=== PATIENT | female | born 1940 | race Caucasian/White ===

== ENCOUNTER 2017-08-11 10:56 | Observation (INO) ==
--- OUTSIDE RECORDS SUMMARY | 2017-08-11 12:04 | External Medical Summary | Referral Summary ---
:1940 Author Organization [facility] Address [address] [place] [address] Care Team Providers Name Role Phone Ayo Blair Primary Care Physician Encounter VC Date(s): 02/17/15 - 02/17/15 [facility] [address] [place] [address]- Discharge Diagnosis: Primary osteoarthritis of left knee Discharge Disposition: 01-Home or Self Care Attending Physician: Joey Truong MD Admitting Physician: Joey Truong MD Referring Physician: Ayo Blair MD Vital Signs No data available for this section Problem List Condition Effective Dates Status Health Status Informant Carotid stenosis(Confirmed) 01/12/11 Resolved CVA (cerebral vascular Resolved accident)(Confirmed) Depression(Confirmed) Resolved High cholesterol(Confirmed) Resolved hx of chronic diffuse Resolved trigonitis(Confirmed) hx of measles & Resolved arthritis(Confirmed) hx of recurrent uti's & stress Resolved incontinence(Confirmed) hx of urethral caruncle, urethral Resolved stenosis(Confirmed) Hypertension(Confirmed) Resolved Hypothyroidism(Confirmed) Resolved LMP - Last menstrual Resolved period(Confirmed)1 Primary osteoarthritis of left Active knee(Confirmed) Anxiety and depression(Confirmed) Active Parkinsons disease(Confirmed) 01/12/11 Resolved Thyroid disease/goiter(Confirmed) Resolved TIA (transient ischemic Active attack)(Confirmed) 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 1years ago - no hyst Allergies, Adverse Reactions, Alerts Substance Reaction Severity Status penicillin Rash Active Medications baclofen 10 mg oral tablet 1 tabs, Oral, TID, # 90 tabs, 0 Refill(s) Start Date: 11/30/13 Status: Orderedbethanechol 25 mg oral tablet See Instructions, TAKE ONE TABLET BY MOUTH THREE TIMES A DAY, # 270 tabs, eRx: [facility], TAKE ONETABLET BY MOUTH THREE TIMES A DAY Start Date: 05/30/15 Status: OrderedcarBAMazepine 200 mg oral tablet 1 tabs, Oral, TID, # 120 tabs, 0 Refill(s) Start Date: 11/30/13 Status: Orderedcarbidopa-levodopa 25 mg-100 mg oral tablet 6 tabs, Oral, Daily, 0 Refill(s) Start Date: 11/30/13 Status: OrderedclonazePAM 0.5 mg oral tablet 0.5 mg 1 tabs, Oral, TID, [facility] [phone] must last 30 days, # 90 tabs, 0 Refill(s) Start Date: 06/02/15 Status: OrderedCymbalta Oral, 0 Refill(s) Start Date: 06/14/15 Status: Orderedescitalopram 5 mg oral tablet See Instructions, TAKE ONE TABLET BY MOUTH DAILY, # 30 tabs, 2 Refill(s), eRx: [facility], TAKE ONETABLET BY MOUTH DAILY Start Date: 03/16/15 Status: Orderedgabapentin 600 mg oral tablet 1 tabs, Oral, BID, # 90 tabs, 0 Refill(s) Start Date: 11/30/13 Status: Orderedlevothyroxine 100 mcg (0.1 mg) oral tablet See Instructions, TAKE ONE TABLET BY MOUTH DAILY, # 30 tabs, 1 Refill(s), eRx: [facility], TAKE ONETABLET BY MOUTH DAILY Start Date: 05/16/15 Status: OrderedLORazepam 0.5 mg oral tablet 0.5 mg 1 tabs, Oral, BID, as needed for anxiety, # 10 tabs, 0 Refill(s) Start Date: 08/22/15 Status: OrderedLotensin 20 mg oral tablet See Instructions, TAKE ONE TABLET BY MOUTH DAILY, # 30 tabs, eRx: [facility], TAKE ONE TABLET BY MOUTH DAILY Start Date: 08/15/15 Status: OrderedMetoprolol Tartrate 50 mg oral tablet See Instructions, TAKE ONE TABLET BY MOUTH TWICE A DAY WITH MEALS, # 180 tabs, eRx: [facility], TAKE ONE TABLET BY MOUTH TWICE A DAY WITH MEALS Start Date: 07/25/15 Status: OrderedNorvasc 10 mg oral tablet See Instructions, TAKE ONE TABLET BY MOUTH DAILY, # 30 tabs, 4 Refill(s), eRx: [facility], TAKE ONETABLET BY MOUTH DAILY Start Date: 04/25/15 Status: OrderedPlavix 75 mg oral tablet See Instructions, TAKE ONE TABLET BY MOUTH DAILY, # 30 tabs, 5 Refill(s), eRx: [facility], TAKE ONETABLET BY MOUTH DAILY Start Date: 03/08/15 Status: Orderedsimvastatin 20 mg oral tablet See Instructions, TAKE ONE TABLET BY MOUTH AT BEDTIME, # 90 tabs, 2 Refill(s), eRx: [facility], TAKE ONE TABLET BY MOUTH AT BEDTIME Start Date: 03/21/15 Status: OrderedtraMADol 50 mg oral tablet 50 mg 1 tabs, Oral, q8hr, as needed for pain, [facility], # 270 tabs, 0 Refill( s) Start Date: 06/17/15 Status: Orderedtriamterene-hydrochlorothiazide 37.5 mg-25 mg oral tablet See Instructions, TAKE ONE TABLET BY MOUTH DAILY, # 30 tabs, 3 Refill(s), eRx: [facility], TAKE ONETABLET BY MOUTH DAILY Start Date: 08/03/14 Status: Ordered Results No data available for this section Immunizations Vaccine Date Refusal Reason influenza virus vaccine, inactivated1 02/11/14 influenza virus vaccine, live 02/16/13 pneumococcal 23-polyvalent vaccine 01/20/02 tetanus-diphth toxoids (Td) adult/adol 03/20/99 1Location History: See scanned document Procedures Procedure Date Related Diagnosis Body Site Arthrocentesis, aspiration and/or injection, 02/17/15 major joint or bursa (eg, shoulder, hip, knee, subacromial bursa); without ultrasound guidance Cystoscopy1 12/06/08 Burch2 1urethral calibration, and dilatation hydrodistention, STL laser vaporation &amp ; stress urinay incont [id number]. Darling & Dr. Nehal Garcias 1980"s Social History Social History Type Response Smoking Status Former smoker; Type: Cigarettes Assessment and Plan Extracted from: Title: Office Visit Note Author: Joey Truong MD Date: 02/17/15 Assessment/Plan Knee pain, left Ordered: Arthro/Asp Major Joint Inj (Shoulder, Hip, Knee) Office Visit Level 3 New 62092 XR Knee Complete Left XR Knee Standing AP Bilateral Primary osteoarthritis of left knee She has fairly significant osteoarthritis her left knee. I talked with her and her about options and treatment. She's not a good surgical candidate an d she has no interest in doing surgery. But I think she would get relief of I aspirated and inject her knee. Not sure all on the would help her out but it should help her out for at least for a whil e. It does last for at least 3 months we probably repeated ideally I would like to do this every 4 months if needed. Procedure note: Left knee was sterilely prepped with both alcohol and Betadine. I then anesthetized the skin on the superior laterally to the patellofemoral percent lidocaine. Then aspirated off 8 5 mL of normal synovial fluid. Injected back in her knee 80 mg of Kenalog and 4 mL one percent lidocaine with epinephrine. She did get upright away afterwards and was walking felt better but she bec anais little lightheaded so we had her sit back down. She eventually was doing better. Ordered: triamcinolone, 2 mL, IntraARTICULAR , Once, First Dose: 02/17/15 17:00:00 CDT , Stop Date: 02/17/15 17:00:00 CDT, [facility] [place] [id number] Arthro/Asp Major Joint Inj (Shoulder, Hip, Knee) Office Visit Level 3 New 63136
--- OUTSIDE RECORDS SUMMARY | 2017-08-11 12:04 | External Medical Summary | Referral Summary ---
:1940 Author Organization [facility] Address [address] [place] [address] Care Team Providers Name Role Phone Blair Ayo Giron Primary Care Physician Encounter VC Date(s): 06/14/15 - 06/14/15 [facility] [address] [place] [address]- [place] Discharge Diagnosis: Primary osteoarthritis of left knee Discharge Disposition: 01-Home or Self Care Attending Physician: Joey Truong MD Admitting Physician: Joey Truong MD Vital Signs Most recent to oldest [Reference Range]: 1 Respiratory Rate [14-20 br/min] 18 br/min (06/14/15 1:44 PM) Problem List Condition Effective Dates Status Health [...] mg 1 tabs, Oral, TID, [facility] [phone] must last 30 days, # 90 tabs, [...] BY MOUTH DAILY Start Date: 05/16/15 Status: OrderedLotensin 20 mg oral tablet See Instructions, TAKE ONE TABLET BY MOUTH DAILY, # 30 tabs, 2 Refill(s), eRx: [facility], TAKE ONETABLET BY MOUTH DAILY Start Date: 03/28/15 Status: OrderedMetoprolol Tartrate 50 mg oral tablet See Instructions, TAKE ONE TABLET BY MOUTH TWICE A DAY WITH MEALS, # 180 unknown unit, 2 Refill(s), eRx: [facility], TAKE ONE TABLET BY MOUTH TWICE A DAY WITH MEALS Start Date: 08/26/14 Status: OrderedNorvasc 10 mg oral tablet See [...] 270 tabs, 0 Refill( s) Start Date: 03/28/15 Status: Orderedtriamterene-hydrochlorothiazide 37.5 mg-25 mg oral tablet [...] Diagnosis Body Site Arthrocentesis, aspiration and/or injection, 06/14/15 major joint or bursa (eg, shoulder, hip, knee, subacromial bursa); without ultrasound guidance Cystoscopy1 12/06/08 Burch2 1urethral calibration, and dilatation hydrodistention, STL laser vaporation &amp ; stress urinay incont [id number]. Darling & Dr. Nehal Garcias 1979" Social History Social History Type Response Smoking Status Former smoker; Type: Cigarettes Assessment and Plan Extracted from: Title: Office Visit Note Author: Joey Truong MD Date: 06/14/15 Assessment/Plan Primary osteoarthritis of left knee She has quite severe osteoarthritis her left knee and is not a good surgical candidate. She has a valgus deformity. Were going to try a lateral unloading brac e see if that helps her some. Also recommend I aspirated and inject her knee today and see if that helps. Procedure note: Left knee was sterilely prepped withBetadine. Laterally to the patella. I anesthetized the skin with one percent lidocaine. I then aspirated offabout 65 mL of fluid in little bloodyeffusion was water real almost like there is a hematoma that's reabsorbing in there. I injected back in 80 mg of Kenalog and 4 mL of one percent lidocaine with epinephrine. We should see he r back in as-needed basis but we need to give the brace least a month to see if that helps and probably be able couple weeks before she gets the brace. Ordered: triamcinolone, 2 mL, IntraARTICULAR , Once, First Dose: 06/14/15 16:00:00 ANNUAL GIVING MANAGER , Stop Date: 06/14/15 16:00:00 ANNUAL GIVING MANAGER, [facility] [id number] Arthro/Asp Major Joint Inj (Shoulder, Hip, Knee) 39475 Office Visit Level 3 Est 92952
--- OUTSIDE RECORDS SUMMARY | 2017-08-11 12:04 | External Medical Summary | Referral Summary ---
:1940 Author Organization [facility] Address [address] [place] [address] Care Team Providers Name Role Phone Ayo Blair Primary Care Physician Encounter VC Date(s): 02/17/15 - 02/17/15 [facility] [address] [place] [address]- Discharge Diagnosis: Primary osteoarthritis of left knee [...] tabs, 0 Refill(s) Start Date: 11/30/13 Status: Orderedbenazepril 20 mg oral tablet See Instructions, TAKE ONE TABLET BY MOUTH DAILY, # 30 tabs, 3 Refill(s), eRx: [facility], TAKE ONETABLET BY MOUTH DAILY Start Date: 11/29/14 Status: OrderedcarBAMazepine 200 mg oral tablet 1 tabs, Oral, TID, # 120 tabs, 0 Refill(s) Start Date: 11/30/13 Status: Orderedcarbidopa-levodopa 25 mg-100 mg oral tablet 6 tabs, Oral, Daily, 0 Refill(s) Start Date: 11/30/13 Status: OrderedclonazePAM 0.5 mg oral tablet 0.5 mg 1 tabs, Oral, TID, [facility] [phone] must last 30 days, # 90 tabs, 0 Refill(s) Start Date: 01/25/15 Status: Orderedgabapentin 600 mg oral tablet 1 tabs, Oral, BID, # 90 tabs, 0 Refill(s) Start Date: 11/30/13 Status: Orderedlevothyroxine 100 mcg (0.1 mg) oral tablet See Instructions, TAKE ONE TABLET BY MOUTH DAILY, # 30 tabs, 1 Refill(s), eRx: [facility], TAKE ONETABLET BY MOUTH DAILY Start Date: 01/10/15 Status: OrderedLexapro 5 mg oral tablet 5 mg 1 tabs, Oral, Daily, # 30 tabs, 0 Refill(s), Pharmacy: [facility], 1 tabs Oral Daily Start Date: 02/15/15 Status: OrderedMetoprolol Tartrate 50 mg oral tablet [...] TAKE ONETABLET BY MOUTH DAILY Start Date: 10/25/14 Status: OrderedPlavix 75 mg oral tablet See Instructions, TAKE ONE TABLET BY MOUTH DAILY, # 30 tabs, 2 Refill(s), eRx: [facility], TAKE ONETABLET BY MOUTH DAILY Start Date: 12/07/14 Status: Orderedsimvastatin 20 mg oral tablet 1 tabs, Oral, Bedtime (once a day), # 90 tabs, 3 Refill(s), Pharmacy: [facility], 1 tabs Oral Bedtime (once a day) Start Date: 03/15/14 Status: OrderedtraMADol 50 mg oral tablet 50 mg 1 tabs, Oral, q8hr, as needed for pain, [facility], # 270 tabs, 0 Refill( s) Start Date: 01/19/15 Status: Orderedtriamterene-hydrochlorothiazide 37.5 mg-25 mg oral tablet See Instructions, TAKE ONE TABLET BY MOUTH DAILY, # 30 tabs, 3 Refill(s), eRx: [facility], TAKE ONETABLET BY MOUTH DAILY Start Date: 08/03/14 Status: OrderedUrecholine 25 mg oral tablet 25 mg 1 tabs, Oral, TID, # 270 tabs, 1 Refill(s), Pharmacy: [facility], 1 tabs Oral TID Start Date: 10/13/14 Status: Ordered Results No data available for [...] laser vaporation &amp ; stress urinay incont [id number]. Darling & Dr. Nehal Garcias 1980"s Social History Social History Type Response Smoking Status Former smoker; Type: Cigarettes Assessment and Plan Extracted from: Title: Office Visit Note Author: Joey Truong MD Date: 02/17/15 Assessment/Plan Knee pain, left Ordered: Arthro/Asp Major Joint Inj (Shoulder, Hip, Knee) Office Visit Level 3 New 35460 XR Knee Complete Left XR Knee Standing [...] CDT , Stop Date: 02/17/15 17:00:00 CDT, [facility] [id number] Arthro/Asp Major Joint Inj (Shoulder, Hip, Knee) 49205 Office Visit Level 3 New 07892
--- OUTSIDE RECORDS SUMMARY | 2017-08-11 12:04 | External Medical Summary | Referral Summary ---
:1940 Author Organization [facility] Address [address] [place] [address] [place] [address] Care Team Providers Name Role Phone Ayo Blair Primary Care Physician Encounter VC Date(s): 02/15/15 - 02/15/15 [facility] [address] [place] [address] Discharge Disposition: 01-Home or Self Care Attending Physician: Ayo Blair MD Admitting Physician: Ayo Blair MD Vital Signs Most recent to oldest [Reference Range]: 1 Blood Pressure [90-140/60-90 mmHg] 164/68 mmHg *HI* (02/15/15 9:47 AM) Problem List Condition Effective Dates Status Health [...] mg 1 tabs, Oral, TID, [facility] [phone] must last 30 days, # 90 tabs, [...] Procedures Procedure Date Related Diagnosis Body Site Cystoscopy1 12/06/08 Burch2 1urethral calibration, and dilatation hydrodistention, STL laser vaporation &amp ; stress urinay incont [id number]. Darling & Dr. Nehal Garcias 1979" Social History Social History Type Response Smoking Status Former smoker; Type: Cigarettes Assessment and Plan Extracted from: Title: Ambulatory Patient Education Author: Ayo Blair MD Date: Behavioral Health Panic Attacks Panic attacks are sudden, short-livedsurges of severe anxiety, fear, or discomfort. They may occur for no reason when you are relaxed, when you are anxious, or when you are sleeping. Panic attacks may occur for a number of reasons: Healthy people occasionally have panic attacks in extreme, life- threatening situations, such as war or natural disasters. Normal anxiety is a protective mechanism of the body that helps us react to danger (fight or flight response). Panic attacks are often seen with anxiety disorders, such as panic disorder, social anxiety disorder, generalized anxiety disorder, and phobias. Anxiety disorders cause excessive or uncontrollable anxiety. They may interfere with your relationships or other life activities. Panic attacks are sometimes seen with other mental illnesses, such as depression and posttraumatic stress disorder. Certain medical conditions, prescription medicines, and drugs of abuse can cause panic attacks. SYMPTOMS Panic attacks start suddenly, peak within 20 minutes, and are accompanied by four or more of the following symptoms: Pounding heart or fast heart rate (palpitations). Sweating. Trembling or shaking. Shortness of breath or feeling smothered. Feeling choked. Chest pain or discomfort. Nausea or strange feeling in your stomach. Dizziness, light-headedness, or feeling like you will faint. Chills or hot flushes. Numbness or tingling in your lips or hands and feet. Feeling that things are not real or feeling that you are not yourself. Fear of losing control or going crazy. Fear of dying. Some of these symptoms can mimic serious medical conditions. For example, you may think you are having a heart attack. Although panic attacks can be very scary, they are not life threatening. DIAGNOSIS Panic attacks are diagnosed through an assessment by your health care provider. Your health care provider will ask questions about your symptoms, such as where and when they occurred. Your health care p rovider will also ask about your medical history and use of alcohol and drugs, including prescription medicines. Your health care provider may order blood tests or other studies to rule out a serious me dical condition. Your health care provider may refer you to a mental health professional for further evaluation. TREATMENT Most healthy people who have one or two panic attacks in an extreme, life- threatening situation will not require treatment. The treatment for panic attacks associated with anxiety disorders or other mental illness typically involves counseling with a mental health professional, medicine, or a combination of both. Your [facility] care provider will help determine what treatment is best for you. Panic attacks due to physical illness usually go away with treatment of the illness. If prescription medicine is causing panic attacks, talk with your health care provider about stopping the medici ne, decreasing the dose, or substituting another medicine. Panic attacks due to alcohol or drug abuse go away with abstinence. Some adults need professional help in order to stop drinking or using drugs. HOME CARE INSTRUCTIONS Take all medicines as directed by your health care provider. Schedule and attend follow-up visits as directed by your health care provider. It is important to keep all your appointments. SEEK MEDICAL CARE IF: You are not able to take your medicines as prescribed. Your symptoms do not improve or get worse. SEEK IMMEDIATE MEDICAL CARE IF: You experience panic attack symptoms that are different than your usual symptoms. You have serious thoughts about hurting yourself or others. You are taking medicine for panic attacks and have a serious side effect. MAKE SURE YOU: Understand these instructions. Will watch your condition. Will get help right away if you are not doing well or get worse. Document Released: 05/06/2006 Document Revised: 05/11/2014 Document Reviewed: 12/18/2013 ExitCare Patient Information 2015 [employer]. This information is not intended to replace advice given to you by your health care provider. Make sure you discuss any questions you have with your health care provider. No follow up information was provided. Extracted from: Title: Office Visit Note Author: Ayo Blair MD Date: 02/15/15 Assessment/Plan Anxiety and depression Would like to start her on Lexapro 5mg and watch for any adverse effects. Follow up in 1-2 weeks. Ordered: Office Visit Level 4 Est 78432 Parkinsons disease Continue with the current medications. Ordered: Office Visit Level 4 Est 29046 Orders: escitalopram, 5 mg 1 tabs, Oral, Daily, # 30 tabs, 0 Refill(s), Pharmacy: [facility], 1 tabs Oral Daily
--- OUTSIDE RECORDS SUMMARY | 2017-08-11 12:04 | External Medical Summary | Referral Summary ---
:1940 Author Organization [facility] Address [address] [place] [address] [place] [address] Care Team Providers Name Role Phone Ayo Blair Primary Care Physician Encounter VC Date(s): 11/09/14 - 11/09/14 [facility] [address] [place] [address] [place] [phone] [place] Discharge Diagnosis: Hypotonic bladder Discharge Disposition: 01-Home or Self Care Attending Physician: Richard Rey JR, MD Admitting Physician: Richard Rey JR, MD Referring Physician: Ayo Blair MD Vital Signs Most recent to oldest [Reference Range]: 1 Temperature Tympanic [36.6-38.1 degC] 36.4 degC *LOW* (11/09/14 11:40 AM) Peripheral Pulse Rate [60-100 bpm] 60 bpm (11/09/14 11:40 AM) Blood Pressure [90-140/60-90 mmHg] 132/74 mmHg (11/09/14 11:40 AM) Problem List Condition Effective Dates Status [...] tabs, 0 Refill(s) Start Date: 11/30/13 Status: OrderedcarBAMazepine 200 mg oral tablet 1 tabs, Oral, TID, # 120 tabs, 0 Refill(s) Start Date: 11/30/13 Status: Orderedcarbidopa-levodopa 25 mg-100 mg oral tablet 6 tabs, Oral, Daily, 0 Refill(s) Start Date: 11/30/13 Status: OrderedclonazePAM 0.5 mg oral tablet 0.5 mg 1 tabs, Oral, TID, [facility] [phone] must last 30 days, # 90 tabs, 0 Refill(s) Start Date: 04/04/15 Status: Orderedescitalopram 5 mg oral tablet See [...] TID, # 270 tabs, 1 Refill(s), Pharmacy: [facility], 1 tabs Oral TID Start Date: [...] laser vaporation &amp ; stress urinay incont [id number]. Darling & Dr. Nehal Garcias 1979"s Social History Social History Type Response Smoking Status Former smoker; Type: Cigarettes Assessment and Plan Extracted from: Title: Ambulatory Patient Education Author: Richard Rey JR, MD Date: Follow Up With: Where: When: Ayo Blair [address] [place] [address] Drive; [place] [address] AddThis (1) Within 3 to 5 days Comments: Follow Up With: Where: When: Richard Rey [address] [place] [address] Drive; Via [facility] [place] [address] AddThis (1) In 6 months 05/11/2015 Comments: Extracted from: Title: Office Visit Note Author: Richard Rey JR, MD Date: 11/09/14 Assessment/Plan Hypotonic bladder Continue taking the Urecholine 25 mg 3 times a day. Reduce intake of caffeine highly acidic highly spiced food. Patient needs to talk to her family doctor with regards to changing triamterene with hydrochlorothiazide to something different kind of antihypertensive medication. Because is also contributes to her nocturnal frequency. I told her also that because of her Parkinson's disease that she might have this problem with marked frequency of urination. Patient also instructed how to do Kegel's pelvic floor exercises. I would like to see her again in 6 months or sooner if needed This was a 30 minute face to face visit with 1/2 of the visit devoted to counseling the patient. Ordered: Office Visit Level 3 Est 64012
--- OUTSIDE RECORDS SUMMARY | 2017-08-11 12:04 | External Medical Summary | Referral Summary ---
:1940 Author Organization [facility] Address [address] [place] [address] [place] [phone] Care Team Providers Name Role Phone Johnnie Ayo Giron Primary Care Physician Encounter VC Date(s): 05/10/15 - 05/10/15 [facility] [address] [place] [address] [place] [id number]- Discharge Diagnosis: Parkinson's disease Discharge Diagnosis: Essential hypertension Discharge Diagnosis: Urinary incontinence Discharge Diagnosis: Peripheral neuropathy Discharge Disposition: 01-Home or Self Care Attending Physician: Richard Rey JR, MD Admitting Physician: Richard Rey JR, MD Vital Signs Most recent to oldest [Reference Range]: 1 Peripheral Pulse Rate [60-100 bpm] 80 bpm (05/10/15 11:27 AM) Blood Pressure [90-140/60-90 mmHg] 156/72 mmHg *HI* (05/10/15 11:27 AM) Problem List Condition Effective Dates Status [...] mg 1 tabs, Oral, TID, [facility] [phone] must last 30 days, # 90 tabs, [...] ONE TABLET BY MOUTH DAILY Start Date: 04/18/15 Status: OrderedLotensin 20 mg oral tablet See [...] laser vaporation &amp ; stress urinay incont [id number]. Darling & Dr. Nehal Garcias 1979" Social History Social History Type Response Smoking Status Former smoker; Type: Cigarettes Assessment and Plan Extracted from: Title: Ambulatory Patient Education Author: Richard Rey JR, MD Date: Follow Up With: Where: When: Ayo Blair [address] [place] [address] Drive; [place] [address] Business (1) Within 3 to 5 days Comments: Follow Up With: Where: When: [facility] [address]; [facility] [place] [address] Business (1) In 6 months 11/09/2015 Comments: Extracted from: Title: Office Visit Note Author: Richard Rey JR, MD Date: 05/10/15 Assessment/Plan 1.Urinary incontinence patient takes Urecholine which had markedly improved her urinary incontinence will continue this medication. Recheck in my office in 6 months 2.Parkinson's disease continue carbidopa levodopa 3.Essential hypertension continue metoprolol and Norvasc 4.Peripheral neuropathy continue gabapentin Ordered: Office Visit Level 3 Est 80222
--- OUTSIDE RECORDS SUMMARY | 2017-08-11 12:04 | External Medical Summary | Referral Summary ---
:1940 Author Organization [facility] Address [address] [place] [address] [place] [phone] Care Team Providers Name Role Phone Johnnie Ayo Giron Primary Care Physician Encounter VC Date(s): 03/06/16 - 03/06/16 [facility] [address] [place] [phone]- Discharge Disposition: 01-Home or Self Care Attending Physician: Rochelle Baig PA-C Admitting Physician: Rochelle Baig PA-C Vital Signs No data available for this section Problem List Condition Effective Dates Status Health Status Informant Carotid stenosis(Confirmed) 01/12/11 Resolved Closed trochanteric fracture of left Active femur with routine healing(Confirmed) CVA (cerebral vascular Resolved accident)(Confirmed) Depression(Confirmed) Resolved [...] Reaction Severity Status penicillin Rash Active Medications amLODIPine 10 mg oral tablet See Instructions, TAKE ONE TABLET BY MOUTH DAILY, # 30 tabs, eRx: [facility], TAKE ONE TABLET BY MOUTH DAILY Start Date: 02/29/16 Status: Orderedbenazepril 20 mg oral tablet See Instructions, TAKE ONE TABLET BY MOUTH DAILY, # 30 tabs, eRx: [facility], TAKE ONE TABLET BY MOUTH DAILY Start Date: 02/29/16 Status: Orderedbethanechol 25 mg oral tablet See Instructions, TAKE ONE TABLET BY MOUTH THREE TIMES A DAY, # 270 tabs, eRx: [facility], TAKE ONETABLET BY MOUTH THREE TIMES A DAY Start Date: 02/06/16 Status: OrderedbusPIRone 10 mg oral tablet 10 mg 1 tabs, Oral, TID, # 90 tabs, 0 Refill(s) Start Date: 11/14/15 Status: OrderedcarBAMazepine 200 mg oral tablet 200 mg 1 tabs, Oral, BID, # 120 tabs, 0 Refill(s) Start Date: 11/30/13 Status: Orderedcarbidopa-levodopa 25 mg-100 mg oral tablet 1 tabs, Oral, 6x/Day, 0 Refill(s) Start Date: 11/30/13 Status: Orderedclopidogrel 75 mg oral tablet See Instructions, TAKE ONE TABLET BY MOUTH DAILY, # 30 tabs, 2 Refill(s), eRx: [facility], TAKE ONETABLET BY MOUTH DAILY Start Date: 02/20/16 Status: OrderedCymbalta 120 mg, Oral, Daily, 0 Refill(s) Start Date: 06/14/15 Status: Orderedgabapentin 600 mg oral tablet 1 tabs, Oral, BID, # 90 tabs, 0 Refill(s) Start Date: 11/30/13 Status: Orderedlevothyroxine 100 mcg (0.1 mg) oral tablet See Instructions, TAKE ONE TABLET BY MOUTH DAILY, # 90 tabs, 3 Refill(s), Pharmacy: [facility], TAKE ONE TABLET BY MOUTH DAILY Start Date: 10/13/15 Status: OrderedMetoprolol Tartrate 50 mg oral tablet See Instructions, TAKE ONE TABLET BY MOUTH TWICE A DAY WITH MEALS, # 180 tabs, eRx: [facility], TAKE ONE TABLET BY MOUTH TWICE A DAY WITH MEALS Start Date: 12/14/15 Status: OrderedSEROquel 25 mg oral tablet 25 mg 1 tabs, Oral, TID, 0 Refill(s) Start Date: 11/14/15 Status: Orderedsimvastatin 20 mg oral tablet See Instructions, TAKE ONE TABLET BY MOUTH AT BEDTIME, # 90 tabs, 1 Refill(s), eRx: [facility], TAKE ONE TABLET BY MOUTH AT BEDTIME Start Date: 12/28/15 Status: OrderedtraMADol 50 mg oral tablet 50 mg 1 tabs, Oral, q8hr, as needed for pain, [facility], # 270 tabs, 0 Refill( s) Start Date: 02/06/16 Status: Ordered Results No data available for this section Immunizations Vaccine Date Refusal Reason influenza virus vaccine, inactivated1 02/11/14 influenza virus vaccine, live 02/16/13 pneumococcal 23-polyvalent vaccine 01/20/02 tetanus-diphth toxoids (Td) adult/adol 03/20/99 1Location History: See scanned document Procedures Procedure Date Related Diagnosis Body Site Cystoscopy1 12/06/08 Burch2 1urethral calibration, and dilatation hydrodistention, STL laser vaporation &amp ; stress urinay incont [id number]. Darling & Dr. Nehal Garcias 1979" Social History Social History Type Response Smoking Status Former smoker; Type: Cigarettes Assessment and Plan No data available for this section
--- OUTSIDE RECORDS SUMMARY | 2017-08-11 12:04 | External Medical Summary | Referral Summary ---
:1940 Author Organization [facility] Address [address] [place] [address] [place] [phone] Care Team Providers Name Role Phone Ayo Blair Primary Care Physician Encounter VC Date(s): 02/15/15 - 02/15/15 [facility] [address] [place] [phone]- [place] Discharge Disposition: [...] Resolved LMP - Last menstrual Resolved period(Confirmed)1 Anxiety and depression(Confirmed) Active Parkinsons disease(Confirmed) 01/12/11 [...] mg 1 tabs, Oral, TID, [facility] [phone] must last 30 days, # 90 tabs, [...] # 180 unknown unit, 2 Refill(s), eRx: [facility], TAKE ONE TABLET BY MOUTH TWICE [...] laser vaporation &amp ; stress urinay incont [id number]. Darling & Dr. Nehal Garcias 1979" Social [...] medicine, or a combination of both. [facility] will help determine what [...] 05/06/2006 Document Revised: 05/11/2014 Document Reviewed: 12/18/2013 [facility] Patient Information 2015 [employer]. This information is not intended to replace [...] weeks. Ordered: Office Visit Level 4 Est 60070 Parkinsons disease Continue with the current medications. Ordered: Office Visit Level 4 Est 83690 Orders: escitalopram, 5 mg 1 tabs, Oral, Daily, # 30 tabs, 0 Refill(s), [facility]acy: [facility], 1 tabs Oral Daily
--- OUTSIDE RECORDS SUMMARY | 2017-08-11 12:04 | External Medical Summary | Referral Summary ---
:1940 Author Organization [facility] Address [address] [place] [address] [place] [phone] Care Team Providers Name Role Phone Johnnie Ayo Giron Primary Care Physician Encounter VC Date(s): 03/18/15 - 03/18/15 [facility] [address] [place] [phone]- Discharge Diagnosis: Anxiety and depression Discharge Disposition: 01-Home or Self Care Attending Physician: Rochelle Baig PA-C Vital Signs Most recent to oldest [Reference Range]: 1 Blood Pressure [90-140/60-90 mmHg] 154/76 mmHg *HI* (03/18/15 11:11 AM) Problem List Condition Effective Dates Status [...] ONE TABLET BY MOUTH DAILY Start Date: 09/19/15 Status: Orderedbaclofen 10 mg oral tablet 1 tabs, Oral, TID, # 90 tabs, 0 Refill(s) Start Date: 11/30/13 Status: Orderedbenazepril 20 mg oral tablet See Instructions, TAKE ONE TABLET BY MOUTH DAILY, # 30 tabs, eRx: [facility], TAKE ONE TABLET BY MOUTH DAILY Start Date: 09/19/15 Status: Orderedbethanechol 25 mg oral tablet See [...] mg 1 tabs, Oral, TID, [facility] [phone] must last 30 days, # 90 tabs, 0 Refill(s) Start Date: 06/02/15 Status: Orderedclopidogrel 75 mg oral tablet See Instructions, TAKE ONE TABLET BY MOUTH DAILY, # 30 tabs, 4 Refill(s), eRx: [facility], TAKE ONETABLET BY MOUTH DAILY Start Date: 09/05/15 Status: OrderedCymbalta Oral, 0 Refill(s) Start Date: [...] tabs, 0 Refill(s) Start Date: 08/22/15 Status: OrderedMetoprolol Tartrate 50 mg oral tablet See Instructions, TAKE ONE TABLET BY MOUTH TWICE A DAY WITH MEALS, # 180 tabs, eRx: [facility], TAKE ONE TABLET BY MOUTH TWICE A DAY WITH MEALS Start Date: 07/25/15 Status: Orderedsimvastatin 20 mg oral tablet See [...] laser vaporation &amp ; stress urinay incont [id number]. Darling & Dr. Nehal Garcias 1980" Social History Social History Type Response Smoking Status Former smoker; Type: Cigarettes Assessment and Plan Extracted from: Title: Ambulatory Patient Education Author: Rochelle Baig PA-C Date: 03/18/15 Behavioral Health Panic Attacks Panic attacks are [...] when they occurred. [facility] will also ask about your medical history [...] Document Reviewed: 12/18/2013 [employer] Patient Information 2015 [email or web address]. This information is not intended to replace advice given to you by your health care provider. Make sure you discuss any questions you have with your health care provider. No follow up information was provided. Extracted from: Title: Office Visit Note Author: Rochelle Baig PA-C Date: 03/18/15 Assessment/Plan Anxiety and depression Today she seems to be doing better. Istrongly encouraged the pt and her to call [place] to set up an appointment. D/wpt that we might be able to increase her Le xapro, but I'd rather her see PV first. I'm not sure an anti-psychotic is appropriate for this pt at this time, but PV may find otherwise. She can continue to take Klonopin TID/HS and Lexapro for now. F/U after appt with PV. Ordered: Office Visit Level 3 Est 04006
--- OUTSIDE RECORDS SUMMARY | 2017-08-11 12:04 | External Medical Summary | Referral Summary ---
:1940 Author Organization [facility] [address] [place] [address] Care Team Providers Name Role Phone Valdemar Garcias Primary Care Physician Encounter [facility] [id number] Date(s): 11/01/16 - 11/01/16 [facility] [place] [phone]- [place] Discharge Diagnosis: Trigeminal neuralgia Discharge Diagnosis: Ataxic gait Discharge Diagnosis: Parkinsons disease Discharge Diagnosis: Benign essential hypertension Discharge Diagnosis: MICHAEL (generalized anxiety disorder) Discharge Diagnosis: Primary hypercholesterolemia Discharge Diagnosis: High risk medication use Discharge Diagnosis: Acute lower UTI Discharge Diagnosis: Adult hypothyroidism Discharge Diagnosis: Mild major depression Discharge Diagnosis: Osteoarthritis of left knee Discharge Disposition: 01-Home or Self Care Attending Physician: Valdemar Garcias MD Admitting Physician: Valdemar Garcias MD Vital Signs Most recent to oldest [Reference Range]: 1 Temperature Tympanic [36.6-38.1 degC] 36.4 degC *LOW* (11/01/16 10:07 AM) Peripheral Pulse Rate [60-100 bpm] 80 bpm (11/01/16 10:07 AM) Blood Pressure [90-140/60-90 mmHg] 170/72 mmHg *HI* (11/01/16 10:07 AM) Problem List Condition Effective Dates Status [...] TABLET BY MOUTH DAILY, # 30 tabs, 0 Refill(s), Pharmacy: [facility], TAKE ONE TABLET BY MOUTH DAILY Start Date: 10/25/16 Status: Orderedbenazepril 20 mg oral tablet See Instructions, TAKE ONE TABLET BY MOUTH DAILY, # 90 tabs, 3 Refill(s), Pharmacy: [facility], TAKE ONE TABLET BY MOUTH DAILY Start Date: 06/08/16 Status: Orderedbethanechol 25 mg oral tablet See Instructions, TAKE ONE TABLET BY MOUTH THREE TIMES A DAY, # 270 tabs, eRx: [facility] Start Date: 08/15/16 Status: OrderedbusPIRone 10 mg oral tablet 20 mg 2 tabs, Oral, TID, # 90 tabs, 0 Refill(s) Start Date: 11/14/15 Status: OrderedcarBAMazepine 200 mg oral tablet 200 mg 1 tabs, Oral, BID, # 120 tabs, 0 Refill(s) Start Date: 11/30/13 Status: Orderedcarbidopa-levodopa 25 mg-100 mg oral tablet 1 tabs, Oral, 5x/Day, 0 Refill(s) Start Date: 11/30/13 Status: Orderedcarbidopa-levodopa 50 mg-200 mg oral tablet, extended release 1 tabs, Oral, BID, Dr. Tierney, 0 Refill(s) Start Date: 11/01/16 Status: Orderedclopidogrel 75 mg oral tablet See Instructions, TAKE ONE TABLET BY MOUTH DAILY, # 30 tabs, 1 Refill(s), eRx: [facility] Start Date: 09/18/16 Status: OrderedCymbalta 120 mg, Oral, Daily, 0 Refill(s) Start Date: 06/14/15 Status: Orderedgabapentin 600 mg oral tablet 1 tabs, Oral, BID, # 90 tabs, 0 Refill(s) Start Date: 11/30/13 Status: Orderedlevothyroxine 100 mcg (0.1 mg) oral tablet See Instructions, TAKE ONE TABLET BY MOUTH DAILY, will need med check and lab for next refill., # 90tabs, 2 Refill(s), Pharmacy: [facility], TAKE ONE TABLET BY MOUTH DAILY, will need med check and lab for next refill. Start Date: 10/03/16 Status: OrderedMetoprolol Tartrate 50 mg oral tablet See Instructions, TAKE ONE TABLET BY MOUTH TWICE A DAY WITH MEALS, # 180 tabs, eRx: [facility] Start Date: 09/18/16 Status: Orderedoxybutynin 10 mg/24 hr oral tablet, extended release 10 mg 1 tabs, Oral, Daily, # 30 tabs, 6 Refill(s), Pharmacy: [facility], 1 tabs Oral Daily,x30 days Start Date: 06/28/16 Stop Date: 01/24/17 Status: OrderedSEROquel 25 mg oral tablet 75 mg 3 tabs, Oral, Bedtime (once a day), 0 Refill(s) Start Date: 11/14/15 Status: Orderedsimvastatin 20 mg oral tablet See Instructions, TAKE ONE TABLET BY MOUTH AT BEDTIME, # 90 tabs, eRx: [facility] Start Date: 09/24/16 Status: Orderedsulfamethoxazole-trimethoprim 800 mg-160 mg oral tablet 1 tabs, Oral, BID, X 7 days, # 14 tabs, 0 Refill(s), Pharmacy: [facility] Start Date: 11/01/16 Stop Date: 11/08/16 Status: OrderedtraMADol 50 mg oral tablet 50 mg 1 tabs, Oral, q8hr, as needed for pain, Must last 90 days [facility], # 270 tabs, 0 Refill(s) Start Date: 08/14/16 Status: Ordered Results Hematology Most recent to oldest [Reference Range]: 1 WBC [4.8-10.8 10*3/uL] 6.5 10*3/uL (11/01/16 10:40 AM) RBC [4.00-5.20] 3.82 *LOW* (11/01/16 10:40 AM) Hgb [12.0-16.0 gm/dL] 12.4 gm/dL (11/01/16 10:40 AM) Hct [37.0-47.0 %] 37.5 % (11/01/16 10:40 AM) MCV [82.0-99.0 fL] 98.2 fL (11/01/16 10:40 AM) MCH [27.0-32.0 pg] 32.5 pg *HI* (11/01/16:40 AM) MCHC [32.0-36.0 gm/dL] 33.1 gm/dL (11/01/16 10:40 AM) RDW [11.5-14.5 %] 12.7 % (11/01/16 10:40 AM) Platelet [150-400 10*3/uL] 237 10*3/uL (11/01/16 10:40 AM) MPV [8.8-14.8 fL] 9.0 fL (11/01/16 10:40 AM) Immature Granulocytes [0.0-1.0 %] 0.5 % (11/01/16 10:40 AM) Neutrophils [51-75 %] 52 % (11/01/16 10:40 AM) Lymphocytes [20-46 %] 37 % (11/01/16 10:40 AM) Monocytes [4-11 %] 9 % (11/01/16 10:40 AM) Eosinophils [0-4 %] 1 % (11/01/16 10:40 AM) Basophils [0-2 %] 0 % (11/01/16 10:40 AM) Neutro Absolute [1.90-7.00] 3.39 (11/01/16 10:40 AM) Lymph Absolute [0.80-3.30] 2.39 (11/01/16 10:40 AM) [place] Absolute [0.30-1.00] 0.61 (11/01/16 10:40 AM) Eos Absolute [0.00-0.50] 0.08 (11/01/16 10:40 AM) Baso Absolute [0.00-0.20] 0.02 (11/01/16 10:40 AM) Chemistry Most recent to oldest [Reference Range]: 1 Sodium Lvl [135-144 mEq/L] 137 mEq/L (11/01/16 10:40 AM) Potassium Lvl [3.5-5.2 mEq/L] 4.2 mEq/L (11/01/16 10:40 AM) Chloride [99-111 mEq/L] 102 mEq/L (11/01/16 10:40 AM) CO2 [22-31 mEq/L] 27 mEq/L (11/01/16 10:40 AM) AGAP [3-20 mEq/L] 8 mEq/L (11/01/16 10:40 AM) BUN [10-20 mg/dL] 14 mg/dL (11/01/16 10:40 AM) Glucose Lvl [70-99 mg/dL] 110 mg/dL *HI* (11/01/16 10:40 AM) Creatinine Lvl [0.57-1.11 mg/dL] 0.75 mg/dL (11/01/16 10:40 AM) eGFR [>60 mL/min] >60 mL/min 1 (11/01/16 10:40 AM) Calcium Lvl [8.4-10.2 mg/dL] 9.3 mg/dL (11/01/16 10:40 AM) Albumin Lvl [3.4-4.8 gm/dL] 4.3 gm/dL (11/01/16 10:40 AM) Total Protein [6.0-7.6 gm/dL] 6.6 gm/dL (11/01/16 10:40 AM) Globulin [1.8-4.0 gm/dL] 2.3 gm/dL (11/01/16 10:40 AM) ALT [0-55 U/L] 7 U/L (11/01/16 10:40 AM) AST [5-34 U/L] 14 U/L (11/01/16 10:40 AM) Alk Phos [40-150 U/L] 82 U/L (11/01/16 10:40 AM) Bili Total [0.2-1.2 mg/dL] 0.1 mg/dL *LOW* (11/01/16 10:40 AM) Chol [0-199 mg/dL] 190 mg/dL (11/01/16 10:40 AM) Trig [0-149 mg/dL] 118 mg/dL (11/01/16 10:40 AM) HDL [40-84 mg/dL] 104 mg/dL *HI* (11/01/16 10:40 AM) LDL [0-130 mg/dL] 62 mg/dL (11/01/16 10:40 AM) VLDL Cholesterol [0-28 mg/dL] 24 mg/dL (11/01/16 10:40 AM) Cardiac Risk [0.0-5.0] 1.8 (11/01/16 10:40 AM) TSH [0.35-4.94] 2.15 (11/01/16 10:40 AM) 1Result Comment: Multiply eGFR results by 1.21 for race.Therapeutic Drug Monitoring Most recent to oldest [Reference Range]: 1 Carbamazepine Lvl [4.0-12.0 ug/mL] 8.4 ug/mL (11/01/16 10:40 AM) Urinalysis Most recent to oldest [Reference Range]: 1 UA Color Yellow (11/01/16 11:11 AM) UA Appear Turbid *ABN* (11/01/16 11:11 AM) UA pH [5.0-8.0] 6.0 (11/01/16 11:11 AM) UA Leuk Est [Negative] Pos 3+ *ABN* (11/01/16 11:11 AM) UA Nitrite [Negative] Positive *ABN* (11/01/16 11:11 AM) UA Protein [Negative] Trace *ABN* (11/01/16 11:11 AM) UA Glucose [Negative] Negative (11/01/16 11:11 AM) UA Ketones [Negative] Negative (11/01/16 11:11 AM) UA Urobilinogen [<1.0 mg/dL] 0.2 mg/dL (11/01/16 11:11 AM) UA Bili [Negative] Negative (11/01/16 11:11 AM) UA Blood [Negative] Pos 1+ *ABN* (11/01/16 11:11 AM) UA Spec Grav [1.003-1.030] 1.020 (11/01/16 11:11 AM) Type Clean Catch (11/01/16 11:11 AM) UA WBC [0-4 /HPF] >50 /HPF *ABN* (11/01/16 11:11 AM) UA RBC [0-4] 5-10 *ABN* (11/01/16 11:11 AM) Epithelial Cells 10-20 (11/01/16 11:11 AM) UA Bacteria Numerous *ABN* (11/01/16 11:11 AM) Immunizations Given and Recorded Vaccine Date Status Refusal Reason influenza virus vaccine, inactivated1 02/11/14 Recorded influenza virus vaccine, live 02/16/13 Given pneumococcal 13-valent conjugate vaccine 10/18/16 Given pneumococcal 23-polyvalent vaccine 01/20/02 Recorded tetanus-diphth toxoids (Td) adult/adol 03/20/99 Recorded 1Location History: See scanned document Procedures Procedure Date Related Diagnosis Body Site Cystoscopy1 12/06/08 Burch2 1urethral calibration, and dilatation hydrodistention, STL laser vaporation &amp ; stress urinay incont [id number]. Darling & Dr. Nehal Garcias 1979" Social History Social History Type Response Smoking Status Tobacco use per day: 1 Pack; Number of years: 20; Date Last Use : Patient stopped about 30 years ago.; Former smoker Assessment and Plan Extracted from: Title: Ambulatory Patient Education Author: Valdemar Garcias MD Date: 11/01/16 Preventive Health Fall Prevention in the Home Falls can cause injuries and can affect people from all age groups. There are many simple things that you can do to make your home safe and to help prevent falls. WHAT CAN I DO ON THE OUTSIDE OF MY HOME? Regularly repair the edges of walkways and driveways and fix any cracks. Remove high doorway thresholds. Trim any shrubbery on the main path into your home. Use bright outdoor lighting. Clear walkways of debris and clutter, including tools and rocks. Regularly check that handrails are securely fastened and in good repair. Both sides of any steps should have handrails. Install guardrails along the edges of any raised decks or porches. Have leaves, snow, and ice cleared regularly. Use sand or salt on walkways during winter months. In the garage, clean up any spills right away, including grease or oil spills. WHAT CAN I DO IN THE BATHROOM? Use night lights. Install grab bars by the toilet and in the tub and shower. Do not use towel bars as grab bars. Use non-skid mats or decals on the floor of the tub or shower. If you need to sit down while you are in the shower, use a plastic, non- slip stool.. Keep the floor dry. Immediately clean up any water that spills on the floor. Remove soap buildup in the tub or shower on a regular basis. Attach bath mats securely with double-sided non-slip rug tape. Remove throw rugs and other tripping hazards from the floor. WHAT CAN I DO IN THE BEDROOM? Use night lights. Make sure that a bedside light is easy to reach. Do not use oversized bedding that drapes onto the floor. Have a firm chair that has side arms to use for getting dressed. Remove throw rugs and other tripping hazards from the floor. WHAT CAN I DO IN THE KITCHEN? Clean up any spills right away. Avoid walking on wet floors. Place frequently used items in [id number] places. If you need to reach for something above you, use a sturdy step stool that has a grab bar. Keep electrical cables out of the way. Do not use floor kenyan or wax that makes floors slippery. If you have to use wax, make sure that it is non-skid floor wax. Remove throw rugs and other tripping hazards from the floor. WHAT CAN I DO IN THE STAIRWAYS? Do not leave any items on the stairs. Make sure that there are handrails on both sides of the stairs. Fix handrails that are broken or loose. Make sure that handrails are as long as the stairways. Check any carpeting to make sure that it is firmly attached to the stairs. Fix any carpet that is loose or worn. Avoid having throw rugs at the top or bottom of stairways, or secure the rugs with carpet tape to prevent them from moving. Make sure that you have a light switch at the top of the stairs and the bottom of the stairs. If you do not have them, have them installed. WHAT ARE SOME OTHER FALL PREVENTION TIPS? Wear closed-toe shoes that fit well and support your feet. Wear shoes that have rubber soles or low heels. When you use a stepladder, make sure that it is completely opened and that the sides are firmly locked. Have someone hold the ladder while you are using it. Do not climb a closed stepladder. Add color or contrast paint or tape to grab bars and handrails in your home. Place contrasting color strips on the first and last steps. Use mobility aids as needed, such as canes, walkers, scooters, and crutches. Turn on lights if it is dark. Replace any light bulbs that burn out. Set up furniture so that there are clear paths. Keep the furniture in the same spot. Fix any uneven floor surfaces. Choose a carpet design that does not hide the edge of steps of a stairway. Be aware of any and all pets. Review your medicines with your healthcare provider. Some medicines can cause dizziness or changes in blood pressure, which increase your risk of falling. Talk with your health care provider about other ways that you can decrease your risk of falls. This may include working with a physical therapist or management trainer to improve your strength, balance, and endurance. This information is not intended to replace advice given to you by your health care provider. Make sure you discuss any questions you have with your health care provider. Document Released: 04/26/2003 Document Revised: 09/20/2015 Document Reviewed: 06/10/2015 [employer] Interactive Patient Education 2016 [employer] No follow up information was provided. Extracted from: Title: several problems Author: Valdemar Garcias MD Date: 11/01/16 Impression and Plan Diagnosis Osteoarthritis of left knee (ELQ67-JN M17.12, Discharge, Medical). Parkinsons disease (LGV97-GG G20, Discharge, Medical). Benign essential hypertension (GZX65-PV I10, Discharge, Medical). Adult hypothyroidism (WJH48-OG E03.9, Discharge, Medical). Primary hypercholesterolemia (TZU77-MI E78.00, Discharge, Medical). Trigeminal neuralgia (DKC43-WX G50.0, Discharge, Medical). High risk medication use (LJL28-NR Z79.899, Discharge, Medical). Ataxic gait (ISM88-KV R26.0, Discharge, Medical). Mild major depression (LWI09-KV F32.0, Discharge, Medical). MICHAEL (generalized anxiety disorder) (LYM74-HK F41.1, Discharge, Medical). Acute lower UTI (ZUK89-XD N30.00, Discharge, Medical). Plan: 1) Lab ordered today, non-fasting. 2) Take the Sulfa antibiotic as prescribed. 3) Continue your current meds. 4) See me in 1 month and as needed.. Orders Orders (Selected) Outpatient Orders Ordered CBC w/ Differential: CMP: Carbamazepine Level: Lipid Panel: Office Visit Level 4 Est 14137: TSH 3rd Generation: Vitamin D 25 OH: eGFR: Ordered (Pending Collection) UA (Urinalysis) with Culture if Indicated: Prescriptions Prescribed amLODIPine 10 mg oral tablet: See Instructions, TAKE ONE TABLET BY MOUTH DAILY , 30 tabs, 0 Refill(s) sulfamethoxazole-trimethoprim 800 mg-160 mg oral tablet: 1 tabs, Oral, BID, for 7 days, 14 tabs, 0 Refill(s). Dx/Order Association Plan: Diagnosis: Acute lower UTI Comment: Ordered: UA (Urinalysis) with Culture if Indicated; Urine, Clean Catch, Routine collect, 11/01/16 10:30:00 CDT, Once, Stop date 11/01/16 10:30: 00 CDT, Nurse Collect Non-Blood, Acute lower UTI CBC w/ Differential; Blood, Routine Collect, 11/01 10:30:00 CDT, Once, Stop date 11/01/16 10:30:00 CDT, Lab Collect, Acute lower UTI | Benign essential hypertension Office Visit Level 4 Est 99075; 11/01/16 9:46:00 CDT, Acute lower UTI | Parkinsons disease | Osteoarthritis of left knee | Primary hypercholesterolemia | Benign essential hy pertension | Adult hypothyroidism | Ataxic gait | Trigeminal neuralgia | MICHAEL ( generalized anxiety disorder) |... Diagnosis: Adult hypothyroidism Comment: Ordered: TSH 3rd Generation; Blood, Routine Collect, 11/01/16 10: 30:00 CDT, Once, Stop date 11/01/16 10:30:00 CDT, Lab Collect, Adult hypothyroidism Office Visit Level 4 Est 22471; 11/01/16 9:46:00 CDT, Acute lower UTI | Parkinsons disease | Osteoarthritis of left knee | Primary hypercholesterolemia | Benign essential hy pertension | Adult hypothyroidism | Ataxic gait | Trigeminal neuralgia | MICHAEL ( generalized anxiety disorder) |... Diagnosis: Ataxic gait Comment: Ordered: Vitamin D 25 OH; Blood, Routine Collect, 11/01/16 10:30: 00 CDT, Once, Stop date 11/01/16 10:30:00 CDT, Lab Collect, Ataxic gait | Trigeminal neuralgia Office Visit Level 4 Est 28808; 11/01/16 9:46:00 CDT, Acute lower UTI | Parkinsons disease | Osteoarthritis of left knee | Primary hypercholesterolemia | Benign essential hy pertension | Adult hypothyroidism | Ataxic gait | Trigeminal neuralgia | MICHAEL ( generalized anxiety disorder) |... Diagnosis: Benign essential hypertension Comment: Ordered: CBC w/ Differential; Blood, Routine Collect, 11/01/16 10 :30:00 CDT, Once, Stop date 11/01/16 10:30:00 CDT, Lab Collect, Acute lower UTI | Benign essential hypertension CMP; Blood, Routine Collect, 11/01/16 10:30:00 CDT , Once, Stop date 11/01/16 10:30:00 CDT, Lab Collect, Benign essential hypertension Office Visit Level 4 Est 65204; 11/01/16 9:46:00 CDT, Acute lower UTI | Parkinsons disease | Osteoarthritis of left knee | Primary hypercholesterolemia | Benign essential hy pertension | Adult hypothyroidism | Ataxic gait | Trigeminal neuralgia | MICHAEL ( generalized anxiety disorder) |... Diagnosis: MICHAEL (generalized anxiety disorder) Comment: Ordered: Office Visit Level 4 Est 19108; 11/01/16 9:46:00 CDT, Acute lower UTI | Parkinsons disease | Osteoarthritis of left knee | Primary hypercholesterolemia | Benign essential hyperten jorge | Adult hypothyroidism | Ataxic gait | Trigeminal neuralgia | MICHAEL ( generalized anxiety disorder) |... Diagnosis: High risk medication use Comment: Ordered: Carbamazepine Level; Blood, Routine Collect, 11/01/16 10 :30:00 CDT, Once, Stop date 11/01/16 10:30:00 CDT, Lab Collect, High risk medication use | Trigeminal neuralgia Diagnosis: Mild major depression Comment: Ordered: Office Visit Level 4 Est 19472; 11/01/16 9:46:00 CDT, Acute lower UTI | Parkinsons disease | Osteoarthritis of left knee | Primary hypercholesterolemia | Benign essential hyperten jorge | Adult hypothyroidism | Ataxic gait | Trigeminal neuralgia | MICHAEL ( generalized anxiety disorder) |... Diagnosis: Osteoarthritis of left knee Comment: Ordered: Office Visit Level 4 Est 19816; 11/01/16 9:46:00 CDT, Acute lower UTI | Parkinsons disease | Osteoarthritis of left knee | Primary hypercholesterolemia | Benign essential hyperten jorge | Adult hypothyroidism | Ataxic gait | Trigeminal neuralgia | MICHAEL ( generalized anxiety disorder) |... Diagnosis: Parkinsons disease Comment: Ordered: Office Visit Level 4 Est 15322; 11/01/16 9:46:00 CDT, Acute lower UTI | Parkinsons disease | Osteoarthritis of left knee | Primary hypercholesterolemia | Benign essential hyperten jorge | Adult hypothyroidism | Ataxic gait | Trigeminal neuralgia | MICHAEL ( generalized anxiety disorder) |... Diagnosis: Primary hypercholesterolemia Comment: Ordered: Lipid Panel; Blood, Routine Collect, 11/01/16 10:30:00 CDT, Once, Stop date 11/01/16 10:30:00 CDT, Lab Collect, Primary hypercholesterolemia Office Visit Level 4 Est 53035; 11/01/16 9:46:00 CDT, Acute lower UTI | Parkinsons disease | Osteoarthritis of left knee | Primary hypercholesterolemia | Benign essential hy pertension | Adult hypothyroidism | Ataxic gait | Trigeminal neuralgia | MICHAEL ( generalized anxiety disorder) |... Diagnosis: Trigeminal neuralgia Comment: Ordered: Vitamin D 25 OH; Blood, Routine Collect, 11/01/16 10:30: 00 CDT, Once, Stop date 11/01/16 10:30:00 CDT, Lab Collect, Ataxic gait | Trigeminal neuralgia Carbamazepine Level; Blood, Routine Collect, 11/01 10:30:00 CDT, Once, Stop date 11/01/16 10:30:00 CDT, Lab Collect, High risk medication use | Trigeminal neuralgia Office Visit Level 4 Est 13838; 11/01/16 9:46:00 CDT, Acute lower UTI | Parkinsons disease | Osteoarthritis of left knee | Primary hypercholesterolemia | Benign essential hy pertension | Adult hypothyroidism | Ataxic gait | Trigeminal neuralgia | MICHAEL ( generalized anxiety disorder) |... Additional Orders: Comment: Ordered: sulfamethoxazole-trimethoprim 800 mg-160 mg oral tablet, 1 tabs, Oral, BID, X 7 days, # 14 tabs, 0 Refill(s), Pharmacy: [facility] End of Orders .
--- OUTSIDE RECORDS SUMMARY | 2017-08-11 12:05 | External Medical Summary | Referral Summary ---
:1940 Author Organization [facility] Address [address] [place] [address] [place] [id number] Care Team Providers Name Role Phone Ayo Blair Primary Care Physician Encounter [facility] Date(s): 05/16/16 - 05/16/16 [facility] [address] [place] [address] [place] [address]- Discharge Diagnosis: Neurogenic bladder Discharge Disposition: 01-Home or Self Care Attending Physician: Sherin Chau MD Admitting Physician: Sherin Chau MD Referring Physician: Ayo Blair MD Vital Signs Most recent to oldest [Reference Range]: 1 Blood Pressure [90-140/60-90 mmHg] 128/78 mmHg (05/16/16 10:37 AM) Problem List Condition Effective Dates Status [...] ONE TABLET BY MOUTH DAILY Start Date: 04/25/16 Status: Orderedbenazepril 20 mg oral tablet See Instructions, TAKE ONE TABLET BY MOUTH DAILY, # 30 tabs, eRx: [facility] Start Date: 04/30/16 Status: Orderedbethanechol 25 mg oral tablet See Instructions, TAKE ONE TABLET BY MOUTH THREE TIMES A DAY, # 270 tabs, eRx: [facility] Start Date: 05/15/16 Status: OrderedbusPIRone 10 mg oral tablet 10 [...] TWICE A DAY WITH MEALS Start Date: 03/19/16 Status: OrderedSEROquel 25 mg oral tablet 25 [...] 270 tabs, 0 Refill( s) Start Date: 05/07/16 Status: Ordered Results No data available for this section Immunizations Given and Recorded Vaccine Date Status Refusal Reason influenza virus vaccine, inactivated1 02/11/14 Recorded influenza virus vaccine, live 02/16/13 Given pneumococcal 23-polyvalent vaccine 01/20/02 Recorded tetanus-diphth toxoids (Td) adult/adol 03/20/99 Recorded 1Location History: See scanned document Procedures Procedure Date Related Diagnosis Body Site Cystoscopy1 12/06/08 Burch2 1urethral calibration, and dilatation hydrodistention, STL laser vaporation &amp ; stress urinay incont [id number]. Darling & Dr. Nehal Garcias 1980"s Social History Social History Type Response Smoking Status Former smoker; Type: Cigarettes Assessment and Plan Extracted from: Title: Office Visit Note Author: Sherin Chau MD Date: 05/16/16 Assessment/Plan 75 yo F with neurogenic bladder secondary to Parkinson's disease and stroke in the past. 1.Neurogenic bladder Discussed pathophysiology of neurogenic bladder with the patient. Will schedule patient for renal bladder US and eval for hydronephrosis. Will also schedule patient for PFPT. [facility] and PVR to rule out retention. She will need UDS in the future to evaluate her bladder pressures and capacity. Ordered: US Retroperitoneal Complete
--- OUTSIDE RECORDS SUMMARY | 2017-08-11 12:05 | External Medical Summary | Referral Summary ---
:1940 Author Organization [facility], [facility] Address [address] [place] [address] [place] [phone] Care Team Providers Name Role Phone Ayo Blair Primary Care Physician Encounter VC Date(s): 02/22/15 - 02/22/15 [facility] [place] [address] [place] [phone] [place] Discharge Disposition: 01-Home or Self Care Attending Physician: Ayo Blair MD Admitting Physician: Ayo Blair MD Vital Signs Most recent to oldest [Reference Range]: 1 Blood Pressure [90-140/60-90 mmHg] 152/68 mmHg *HI* (02/22/15 9:36 AM) Problem List Condition Effective Dates Status [...] mg 1 tabs, Oral, TID, [facility] [phone] must last 30 days, # 90 tabs, [...] day), # 90 tabs, 3 Refill(s), Pharmacy: [facility], 1 tabs Oral Bedtime (once a [...] TID Start Date: 10/13/14 Status: Ordered Results Hematology Most recent to oldest [Reference Range]: 1 WBC [4.8-10.8 10*3/uL] 7.6 10*3/uL (02/22/15 10:26 AM) RBC [4.00-5.20] 4.09 (02/22/15 10:26 AM) Hgb [12.0-16.0 gm/dL] 12.7 gm/dL (02/22/15 10:26 AM) Hct [37.0-47.0 %] 37.7 % (02/22/15 10:26 AM) MCV [82.0-99.0 fL] 92.2 fL (02/22/15 10:26 AM) MCH [27.0-32.0 pg] 31.1 pg (02/22/15 10:26 AM) MCHC [32.0-36.0 gm/dL] 33.7 gm/dL (02/22/15 10:26 AM) RDW [11.5-14.5 %] 13.4 % (02/22/15 10:26 AM) Platelet [150-400 10*3/uL] 277 10*3/uL (02/22/15 10:26 AM) MPV [8.8-14.8 fL] 9.5 fL (02/22/15 10:26 AM) Immunizations Vaccine Date Refusal Reason influenza virus vaccine, inactivated1 02/11/14 influenza virus vaccine, live 02/16/13 pneumococcal 23-polyvalent vaccine 01/20/02 tetanus-diphth toxoids (Td) adult/adol 03/20/99 1Location History: See scanned document Procedures Procedure Date Related Diagnosis Body Site Cystoscopy1 12/06/08 Burch2 1urethral calibration, and dilatation hydrodistention, STL laser vaporation &amp ; stress urinay incont duux2Ix. Darling & Dr. Nehal Garcias 1979" Social History Social History Type Response Smoking Status Former smoker; Type: Cigarettes Assessment and Plan Extracted from: Title: Ambulatory Patient Education Author: Ayo Blair MD Date: Family Medicine Depression Depression refers to feeling sad, low, down in the dumps, blue, gloomy, or empty. In general, there are two kinds of depression: 1. Normal sadness or normal grief. This kind of depression is one that we all feel from time to time after upsetting life experiences, such as the loss of a job or the ending of a relationship. This ki nd of depression is considered normal, is short lived, and resolves within a few days to 2 weeks. Depression experienced after the loss of a loved one ( bereavement) often lasts longer than 2 weeks but normally gets better with time. 2. Clinical depression. This kind of depression lasts longer than normal sadness or normal grief or interferes with your ability to function at home, at work, and in school. It also interferes with you r personal relationships. It affects almost every aspect of your life. Clinical depression is an illness. Symptoms of depression can also be caused by conditions other than those mentioned above, such as: Physical illness. Some physical illnesses, including underactive thyroid gland (hypothyroidism), severe anemia, specific types of cancer, diabetes, uncontrolled seizures, heart and lung problems, s trokes, and chronic pain are commonly associated with symptoms of depression. Side effects of some prescription medicine. In some people, certain types of medicine can cause symptoms of depression. Substance abuse. Abuse of alcohol and illicit drugs can cause symptoms of depression. SYMPTOMS Symptoms of normal sadness and normal grief include the following: Feeling sad or crying for short periods of time. Not caring about anything (apathy). Difficulty sleeping or sleeping too much. No longer able to enjoy the things you used to enjoy. Desire to be by oneself all the time (social isolation). Lack of energy or motivation. Difficulty concentrating or remembering. Change in appetite or weight. Restlessness or agitation. Symptoms of clinical depression include the same symptoms of normal sadness or normal grief and also the following symptoms: Feeling sad or crying all the time. Feelings of guilt or worthlessness. Feelings of hopelessness or helplessness. Thoughts of suicide or the desire to harm yourself (suicidal ideation). Loss of touch with reality (psychotic symptoms). Seeing or hearing things that are not real (hallucinations) or having false beliefs about your life or the people around you (delusions and paranoia). DIAGNOSIS The diagnosis of clinical depression is usually based on how bad the symptoms are and how long they have lasted. Your health care provider will also ask you questions about your medical history and subs tance use to find out if physical illness, use of prescription medicine, or substance abuse is causing your depression. Your health care provider may also order blood tests. TREATMENT Often, normal sadness and normal grief do not require treatment. However, sometimes antidepressant medicine is given for bereavement to ease the depressive symptoms until they resolve. The treatment for clinical depression depends on how bad the symptoms are but often includes antidepressant medicine, counseling with a mental health professional, or both. Your health care provider regina l help to determine what treatment is best for you. Depression caused by physical illness usually goes away with appropriate medical treatment of the illness. If prescription medicine is causing depression , talk with your health care provider about stopp ing the medicine, decreasing the dose, or changing to another medicine. Depression caused by the abuse of alcohol or illicit drugs goes away when you stop using these substances. Some adults need professional help in order to stop drinking or using drugs. SEEK IMMEDIATE MEDICAL CARE IF: You have thoughts about hurting yourself or others. You lose touch with reality (have psychotic symptoms). You are taking medicine for depression and have a serious side effect. FOR MORE INFORMATION National [place] on Mental Illness: www.jesica.org [employer] of [employer]: www.nimh.nih.gov Document Released: 05/03/2001 Document Revised: 09/20/2014 Document Reviewed: 08/04/2012 ExitCare Patient Information 2015 [facility], [employer]. This information is not intended to replace advice given to you by your health care provider. Make sure you discuss any questions you have with your health care provider. Fatigue Fatigue is a feeling of tiredness, lack of energy, lack of motivation, or feeling tired all the time. Having enough rest, good nutrition, and reducing stress will normally reduce fatigue. Consult your c aregiver if it persists. The nature of your fatigue will help your caregiver to find out its cause. The treatment is based on the cause. CAUSES There are many causes for fatigue. Most of the time, fatigue can be traced to one or more of your habits or routines. Most causes fit into one or more of three general areas. They are: Lifestyle problems Sleep disturbances. Overwork. Physical exertion. Unhealthy habits. Poor eating habits or eating disorders. Alcohol and/or drug use . Lack of proper nutrition (malnutrition). Psychological problems Stress and/or anxiety problems. Depression. Grief. Boredom. Medical Problems or Conditions Anemia. . Thyroid gland problems. Recovery from major surgery. Continuous pain. Emphysema or asthma that is not well controlled Allergic conditions. Diabetes. Infections (such as mononucleosis). Obesity. Sleep disorders, such as sleep apnea. Heart failure or other heart-related problems. Cancer. Kidney disease. Liver disease. Effects of certain medicines such as antihistamines, cough and cold remedies, prescription pain medicines, heart and blood pressure medicines, drugs used for treatment of cancer, and some antidepressants. SYMPTOMS The symptoms of fatigue include: Lack of energy. Lack of drive (motivation). Drowsiness. Feeling of indifference to the surroundings. DIAGNOSIS The details of how you feel help guide your caregiver in finding out what is causing the fatigue. You will be asked about your present and past health condition. It is important to review all medicines that you take, including prescription and non-prescription items. A thorough exam will be done. You will be questioned about your feelings, habits, and normal lifestyle. Your caregiver may suggest blood tests, urine tests, or other tests to look for common medical causes of fatigue. TREATMENT Fatigue is treated by correcting the underlying cause. For example, if you have continuous pain or depression, treating these causes will improve how you feel. Similarly, adjusting the dose of certain medicines will help in reducing fatigue. HOME CARE INSTRUCTIONS Try to get the required amount of good sleep every night. Eat a healthy and nutritious diet, and drink enough water throughout the day. Practice ways of relaxing (including yoga or meditation). Exercise regularly. Make plans to change situations that cause stress. Act on those plans so that stresses decrease over time. Keep your work and personal routine reasonable. Avoid street drugs and minimize use of alcohol. Start taking a daily multivitamin after consulting your caregiver. SEEK MEDICAL CARE IF: You have persistent tiredness, which cannot be accounted for. You have fever. You have unintentional weight loss. You have headaches. You have disturbed sleep throughout the night. You are feeling sad. You have constipation. You have dry skin. You have gained weight. You are taking any new or different medicines that you suspect are causing fatigue. You are unable to sleep at night. You develop any unusual swelling of your legs or other parts of your body. SEEK IMMEDIATE MEDICAL CARE IF: You are feeling confused. Your vision is blurred. You feel faint or pass out. You develop severe headache. You develop severe abdominal, pelvic, or back pain. You develop chest pain, shortness of breath, or an irregular or fast heartbeat. You are unable to pass a normal amount of urine. You develop abnormal bleeding such as bleeding from the rectum or you vomit blood. You have thoughts about harming yourself or committing suicide. You are worried that you might harm someone else. MAKE SURE YOU: Understand these instructions. Will watch your condition. Will get help right away if you are not doing well or get worse. Document Released: 03/02/2008 Document Revised: 07/28/2012 Document Reviewed: 09/07/2014 [facility] Patient Information 2015 [facility] [employer]. This information is not intended to replace advice given to you by your health care provider. Make sure you discuss any questions you have with your health care provider. No follow up information was provided. Extracted from: Title: Office Visit Note Author: Ayo Blair MD Date: 02/22/15 Assessment/Plan Anxiety and depression See note above. Follow up in 3-4 weeks. Ordered: Office Visit Level 3 Est 92100 Chronic fatigue Ordered: CBC Hemogram Office Visit Level 3 Est 48279 CVA (cerebral vascular accident) Ordered: Office Visit Level 3 Est 41150 Parkinsons disease Ordered: Office Visit Level 3 Est 50033
--- OUTSIDE RECORDS SUMMARY | 2017-08-11 12:05 | External Medical Summary | Referral Summary ---
:1940 Author Organization [facility] Address [address] [place] [address] [place] [phone] Care Team Providers Name Role Phone Ayo Blair Primary Care Physician Encounter VC Date(s): 11/14/15 - 11/14/15 [facility] [place] [address] [place] [phone]- Discharge Disposition: 01-Home or Self Care Attending Physician: Ayo Blair MD Admitting Physician: Ayo Blair MD Vital Signs Most recent to oldest [Reference Range]: 1 Blood Pressure [90-140/60-90 mmHg] 142/60 mmHg *HI* (11/14/15 10:48 AM) Problem List Condition Effective Dates Status [...] BY MOUTH DAILY, # 30 tabs, [facility]: [facility], TAKE ONE TABLET BY MOUTH DAILY Start Date: 10/31/15 Status: Orderedbenazepril 20 mg oral tablet See Instructions, TAKE ONE TABLET BY MOUTH DAILY, # 30 tabs, eRx: [facility], TAKE ONE TABLET BY MOUTH DAILY Start Date: 10/31/15 Status: Orderedbethanechol 25 mg oral tablet See Instructions, TAKE ONE TABLET BY MOUTH THREE TIMES A DAY, # 270 tabs, eRx: [facility], TAKE ONETABLET BY MOUTH THREE TIMES A DAY Start Date: 11/07/15 Status: OrderedbusPIRone 10 mg oral tablet 10 [...] MOUTH DAILY Start Date: 09/05/15 Status: OrderedCymbalta 120 mg, Oral, Daily, 0 Refill(s) Start Date: 06/14/15 Status: Orderedgabapentin 600 mg oral tablet 1 tabs, Oral, BID, # 90 tabs, 0 Refill(s) Start Date: 11/30/13 Status: Orderedlevothyroxine 100 mcg (0.1 mg) oral tablet See Instructions, TAKE ONE TABLET BY MOUTH DAILY, # 90 tabs, 3 Refill(s), Pharmacy: [facility], TAKE ONE TABLET BY MOUTH DAILY Start Date: 10/13/15 Status: OrderedMetoprolol Tartrate 50 mg oral tablet See Instructions, TAKE TWO TABLETS BY MOUTH TWICE A DAY WITH MEALS, # 180 tabs, eRx: [facility], TAKE ONE TABLET BY MOUTH TWICE A DAY WITH MEALS Start Date: 07/25/15 Status: OrderedSEROquel 25 mg oral tablet 25 [...] 270 tabs, 0 Refill( s) Start Date: 11/07/15 Status: Ordered Results No data available for this section Immunizations Vaccine Date Refusal Reason influenza virus vaccine, inactivated1 02/11/14 influenza virus vaccine, live 02/16/13 pneumococcal 23-polyvalent vaccine 01/20/02 tetanus-diphth toxoids (Td) adult/adol 03/20/99 1Location History: See scanned document Procedures Procedure Date Related Diagnosis Body Site Cystoscopy1 12/06/08 Burch2 1urethral calibration, and dilatation hydrodistention, STL laser vaporation &amp ; stress urinay incont [id number]. Darling & Dr. Nehal Garcias 1979" Social History Social History Type Response Smoking Status Former smoker; Type: Cigarettes Assessment and Plan No data available for this section
--- OUTSIDE RECORDS SUMMARY | 2017-08-11 12:05 | External Medical Summary | Referral Summary ---
:1940 Author Organization [facility] Address [address] [place] [address] [place] [address] Care Team Providers Name Role Phone Ayo Blair Primary Care Physician Encounter VC Date(s): 10/18/16 - 10/18/16 [facility] [address] [place] [phone]- [place] Discharge Disposition: 01-Home or Self Care Attending Physician: Rochelle Baig PA-C Admitting Physician: Ayo Blair MD Vital Signs Most recent to oldest [Reference Range]: 1 Blood Pressure [90-140/60-90 mmHg] 158/82 mmHg *HI* (10/18/16 9:31 AM) Problem List Condition Effective Dates Status [...] ONE TABLET BY MOUTH DAILY Start Date: 09/26/16 Status: Orderedbenazepril 20 mg oral tablet See [...] 5x/Day, 0 Refill(s) Start Date: 11/30/13 Status: Orderedclopidogrel [...] next refill., # 90tabs, 2 Refill(s), Pharmacy: [facility], TAKE ONE TABLET BY MOUTH DAILY, will need med check and lab for next refill. Start Date: 10/03/16 Status: OrderedMetoprolol Tartrate 50 mg oral tablet See Instructions, TAKE ONE TABLET BY MOUTH TWICE A DAY WITH MEALS, # 180 tabs, eRx: [facility] Start Date: 09/18/16 Status: Orderedoxybutynin 10 mg/24 hr oral tablet, extended release 10 mg 1 tabs, Oral, Daily, # 30 tabs, 6 Refill(s), Pharmacy: [facility], 1 tabs Oral Daily,x30 days Start Date: 06/28/16 Stop Date: 01/24/17 Status: OrderedSEROquel 25 mg oral tablet 75 mg 3 tabs, Oral, Bedtime (once a day), 0 Refill(s) Start Date: 11/14/15 Status: Orderedsimvastatin 20 mg oral tablet See Instructions, TAKE ONE TABLET BY MOUTH AT BEDTIME, # 90 tabs, eRx: [facility] Start Date: 09/24/16 Status: OrderedtraMADol 50 mg oral tablet 50 mg 1 tabs, Oral, q8hr, as needed for pain, Must last 90 days [facility], # 270 tabs, 0 Refill(s) Start Date: 08/14/16 Status: Ordered Results No data available for [...] laser vaporation &amp ; stress urinay incont [id number]. Darling & Dr. Nehal Garcias 1980"s Social History Social History Type Response Smoking Status Tobacco use per day: 1 Pack; Number of years: 20; Date Last Use : Patient stopped about 30 years ago.; Former smoker Assessment and Plan Extracted from: Title: Ambulatory Patient Education Author: Delonte Bansal RN Date: 10/18/16 Cardiovascular Fat and Cholesterol Restricted Diet Getting too much fat and cholesterol in your diet may cause health problems. Following this diet helps keep your fat and cholesterol at normal levels. This can keep you from getting sick. WHAT TYPES OF FAT SHOULD I CHOOSE? Choose monosaturated and polyunsaturated fats. These are found in foods such as olive oil, canola oil, flaxseeds, walnuts, almonds, and seeds. Eat more omega-3 fats. Good choices include salmon, mackerel, sardines, tuna, flaxseed oil, and ground flaxseeds. Limit saturated fats. These are in animal products such as meats, butter, and cream. They can also be in plant products such as palm oil, palm kernel oil , and coconut oil. Avoid foods with partially hydrogenated oils in them. These contain trans fats. Examples of foods that have trans fats are stick margarine, some tub margarines, cookies, crackers, and other baked goods. WHAT GENERAL GUIDELINES DO I NEED TO FOLLOW? Check food labels. Look for the words "trans fat" and "saturated fat." When preparing a meal: Fill half of your plate with vegetables and green salads. Fill one fourth of your plate with whole grains. Look for the word "whole" as the first word in the ingredient list. Fill one fourth of your plate with lean protein foods. Limit fruit to two servings a day. Choose fruit instead of juice. Eat more foods with soluble fiber. Examples of foods with this type of fiber are apples, broccoli, carrots, beans, peas, and barley. Try to get 20 30 g (grams) of fiber per day. Eat more home-cooked foods. Eat less at restaurants and buffets. Limit or avoid alcohol. Limit foods high in starch and sugar. Limit fried foods. Cook foods without frying them. Baking, boiling, grilling, and broiling are all great options. Lose weight if you are overweight. Losing even a small amount of weight can help your overall health. It can also help prevent diseases such as diabetes and heart disease. WHAT FOODS CAN I EAT? Grains Whole grains, such as whole wheat or whole grain breads, crackers, cereals, and pasta. Unsweetened oatmeal, bulgur, barley, quinoa, or brown rice. [place] or whole wheat flour tortillas. Vegetables Fresh or frozen vegetables (raw, steamed, roasted, or grilled). Green salads. Fruits All fresh, canned (in natural juice), or frozen fruits. Meat and Other Protein Products Ground beef (85% or leaner), grass-fed beef, or beef trimmed of fat. Skinless chicken or turkey. Ground chicken or turkey. Pork trimmed of fat. All fish and seafood. Eggs. Dried beans, peas, or lentils. Unsalted nuts or seeds. Unsalted canned or dry beans. Dairy Low-fat dairy products, such as skim or 1% milk, 2% or reduced-fat cheeses, low -fat ricotta or cottage cheese, or plain low-fat yogurt. Fats and Oils Tub margarines without trans fats. Light or reduced-fat mayonnaise and salad dressings. Avocado. [place], canola, sesame, or safflower oils. Natural peanut or almond butter (choose ones without added sugar and oil). The items listed above may not be a complete list of recommended foods or beverages. Contact your dietitian for more options. WHAT FOODS ARE NOT RECOMMENDED? Grains White bread. White pasta. White rice. Cornbread. Bagels, pastries, and croissants. Crackers that contain trans fat. Vegetables White potatoes. [place]. Creamed or fried vegetables. Vegetables in a cheese sauce. Fruits Dried fruits. Canned fruit in light or heavy syrup. Fruit juice. Meat and Other Protein Products Fatty cuts of meat. Ribs, chicken wings, leach, sausage, bologna, salami, chitterlings, fatback, hot dogs, bratwurst, and packaged luncheon meats. Liver and organ meats. Dairy Whole or 2% milk, cream, roid-xtw-kmbt, and cream cheese. Whole milk cheeses. Whole-fat or sweetened yogurt. Full-fat cheeses. Nondairy creamers and whipped toppings. Processed cheese, cheese spreads, or cheese curds. Sweets and Desserts [place] syrup, sugars, honey, and molasses. Candy. Jam and jelly. Syrup. Sweetened cereals. Cookies, pies, cakes, donuts, muffins, and ice cream. Fats and Oils Butter, stick margarine, lard, shortening, ghee, or leach fat. Coconut, palm kernel, or palm oils. Beverages Alcohol. Sweetened drinks (such as sodas, lemonade, and fruit drinks or punches ). The items listed above may not be a complete list of foods and beverages to avoid. Contact your dietitian for more information. This information is not intended to replace advice given to you by your health care provider. Make sure you discuss any questions you have with your health care provider. Document Released: 11/04/2012 Document Revised: 05/27/2015 Document Reviewed: 08/05/2014 [employer] Interactive Patient Education 2016 [employer] Preventive Health Fall Prevention in the Home Falls can cause injuries. They can happen to people of all ages. There are many things you can do to make your home safe and to help prevent falls. WHAT CAN I DO ON THE OUTSIDE OF MY HOME? Regularly fix the edges of walkways and driveways and fix any cracks. Remove anything that might make you trip as you walk through a door, such as a raised step or threshold. Trim any bushes or trees on the path to your home. Use bright outdoor lighting. Clear any walking paths of anything that might make someone trip, such as rocks or tools. Regularly check to see if handrails are loose or broken. Make sure that both sides of any steps have handrails. Any raised decks and porches should have guardrails on the edges. Have any leaves, snow, or ice cleared regularly. Use sand or salt on walking paths during winter. Clean up any spills in your garage right away. This includes oil or grease spills. WHAT CAN I DO IN THE BATHROOM? Use night lights. Install grab bars by the toilet and in the tub and shower. Do not use towel bars as grab bars. Use non-skid mats or decals in the tub or shower. If you need to sit down in the shower, use a plastic, non-slip stool. Keep the floor dry. Clean up any water that spills on the floor as soon as it happens. Remove soap buildup in the tub or shower regularly. Attach bath mats securely with double-sided non-slip rug tape. Do not have throw rugs and other things on the floor that can make you trip. WHAT CAN I DO IN THE BEDROOM? Use night lights. Make sure that you have a light by your bed that is easy to reach. Do not use any sheets or blankets that are too big for your bed. They should not hang down onto the floor. Have a firm chair that has side arms. You can use this for support while you get dressed. Do not have throw rugs and other things on the floor that can make you trip. WHAT CAN I DO IN THE KITCHEN? Clean up any spills right away. Avoid walking on wet floors. Keep items that you use a lot in zkpf-ys-ahoud places. If you need to reach something above you, use a strong step stool that has a grab bar. Keep electrical cords out of the way. Do not use floor nepali or wax that makes floors slippery. If you must use wax, use non-skid floor wax. Do not have throw rugs and other things on the floor that can make you trip. WHAT CAN I DO WITH MY STAIRS? Do not leave any items on the stairs. Make sure that there are handrails on both sides of the stairs and use them. Fix handrails that are broken or loose. Make sure that handrails are as long as the stairways. Check any carpeting to make sure that it is firmly attached to the stairs. Fix any carpet that is loose or worn. Avoid having throw rugs at the top or bottom of the stairs. If you do have throw rugs, attach them to the floor with carpet tape. Make sure that you have a light switch at the top of the stairs and the bottom of the stairs. If you do not have them, ask someone to add them for you. WHAT ELSE CAN I DO TO HELP PREVENT FALLS? Wear shoes that: Do not have high heels. Have rubber bottoms. Are comfortable and fit you well. Are closed at the toe. Do not wear sandals. If you use a stepladder: Make sure that it is fully opened. Do not climb a closed stepladder. Make sure that both sides of the stepladder are locked into place. Ask someone to hold it for you, if possible. Clearly maral and make sure that you can see: Any grab bars or handrails. First and last steps. Where the edge of each step is. Use tools that help you move around (mobility aids) if they are needed. These include: Canes. Walkers. Scooters. Crutches. Turn on the lights when you go into a dark area. Replace any light bulbs as soon as they burn out. Set up your furniture so you have a clear path. Avoid moving your furniture around. If any of your floors are uneven, fix them. If there are any pets around you, be aware of where they are. Review your medicines with your doctor. Some medicines can make you feel dizzy. This can increase your chance of falling. Ask your doctor what other things that you can do to help prevent falls. This information is not intended to replace advice given to you by your health care provider. Make sure you discuss any questions you have with your health care provider. Document Released: 03/02/2010 Document Revised: 09/20/2015 Document Reviewed: 06/10/2015 Else[employer] Interactive Patient Education 2016 [employer] Inc. No follow up information was provided.
--- OUTSIDE RECORDS SUMMARY | 2017-08-11 12:05 | External Medical Summary | Referral Summary ---
:1940 Author Organization [facility] Address [address] [place] [address] [place] [address] Care Team Providers Name Role Phone Johnnie Ayo Giron Primary Care Physician Encounter VC Date(s): 03/18/15 - 03/18/15 [facility] [address] [place] [phone]- Discharge Diagnosis: Anxiety and depression Discharge Disposition: [...] mg 1 tabs, Oral, TID, [facility] [phone] must last 30 days, # 90 tabs, 0 Refill(s) Start Date: 02/28/15 Status: Orderedescitalopram 5 mg oral tablet See [...] ONE TABLET BY MOUTH DAILY Start Date: 03/14/15 Status: OrderedMetoprolol Tartrate 50 mg oral tablet [...] 03/08/15 Status: Orderedsimvastatin 20 mg oral tablet 1 [...] laser vaporation &amp ; stress urinay incont [id number]. Darling & Dr. Nehal Garcias 1980"s Social [...] medicine, or a combination of both. Your [facility] care provider will help determine what [...] Document Reviewed: 12/18/2013 ExitCare Patient Information 2015 [employer]. This information is not intended to replace [...] encouraged the pt and her to call [facility] to set up an appointment. D/wpt that we might be able to increase her Le xapro, but I'd rather her see PV first. I'm not sure an anti-psychotic is appropriate for this pt at this time, but PV may find otherwise. She can continue to take Klonopin TID/HS and Lexapro for now. F/U after appt with PV. Ordered: Office Visit Level 3 Est 05383
--- OUTSIDE RECORDS SUMMARY | 2017-08-11 12:05 | External Medical Summary | Referral Summary ---
:1940 Author Organization [facility] Address [address] [place] [address] [place] [address] Care Team Providers Name Role Phone Ayo Blair Primary Care Physician Encounter VC Date(s): 06/08/16 - 06/08/16 [facility] [address] [place] [address]- Discharge Disposition: 01-Home or Self Care Attending Physician: Ayo Blair MD Admitting Physician: Ayo Blair MD Vital Signs Most recent to oldest [Reference Range]: 1 Peripheral Pulse Rate [60-100 bpm] 60 bpm (06/08/16 10:09 AM) Blood Pressure [90-140/60-90 mmHg] 140/84 mmHg (06/08/16 10:09 AM) SpO2 95 % (06/08/16 10:09 AM) Problem List Condition Effective Dates Status [...] Active Medications amLODIPine 10 mg oral tablet 10 mg 1 tabs, Oral, Daily, PT DUE FOR APPOINTMENT, # 30 tabs, 0 Refill(s), Pharmacy: [facility] Start Date: 05/22/16 Status: Orderedbenazepril 20 mg oral tablet See Instructions, TAKE ONE TABLET BY MOUTH DAILY, # 90 tabs, 3 Refill(s), Pharmacy: [facility], TAKE ONE TABLET BY MOUTH DAILY Start Date: 06/08/16 Status: Orderedbethanechol 25 mg oral tablet See Instructions, TAKE ONE TABLET BY MOUTH THREE TIMES A DAY, # 270 tabs, eRx: [facility] Start Date: 05/15/16 Status: OrderedbusPIRone 10 mg oral tablet 20 mg 2 tabs, Oral, TID, # 90 tabs, 0 Refill(s) Start Date: 11/14/15 Status: OrderedcarBAMazepine 200 mg oral tablet 200 mg 1 tabs, Oral, BID, # 120 tabs, 0 Refill(s) Start Date: 11/30/13 Status: Orderedcarbidopa-levodopa 25 mg-100 mg oral tablet 1 tabs, Oral, 5x/Day, 0 Refill(s) Start Date: 11/30/13 Status: Orderedclopidogrel 75 mg oral tablet 75 mg 1 tabs, Oral, Daily, PT DUE FOR APPOINTMENT, # 30 tabs, 0 Refill(s), Pharmacy: [facility] Start Date: 05/22/16 Status: OrderedCymbalta 120 mg, Oral, Daily, 0 [...] DAY WITH MEALS, # 180 tabs, eRx: [facility], TAKE ONE TABLET BY MOUTH TWICE A DAY WITH MEALS Start Date: 03/19/16 Status: OrderedSEROquel 25 mg oral tablet 75 [...] laser vaporation &amp ; stress urinay incont [id number]. Darling & Dr. Nehal Garcias Social History Social History Type Response Smoking Status Former smoker; Type: Cigarettes Assessment and Plan No data available for this section
--- OUTSIDE RECORDS SUMMARY | 2017-08-11 12:05 | External Medical Summary | Referral Summary ---
:1940 Author Organization [facility] Address [address] [place] [address] [place] [address] Care Team Providers Name Role Phone Ayo Blair Primary Care Physician Encounter VC Date(s): 02/22/15 - 02/22/15 [facility] [address] [place] [phone] [place] Discharge Disposition: [...] mg 1 tabs, Oral, TID, [facility] [phone] must last 30 days, # 90 tabs, [...] DAILY Start Date: 08/03/14 Status: Ordered Results Hematology Most recent to [...] laser vaporation &amp ; stress urinay incont [id number]. Darling & Dr. Nehal Garcias 1979"s Social [...] serious side effect. FOR MORE INFORMATION National [place] on Mental Illness: www.jesica.org National [place] of Mental Health: www.nimh.nih.gov Document Released: 05/03/2001 Document Revised: 09/20/2014 Document Reviewed: 08/04/2012 ExitCare Patient Information 2015 [employer]. This information is not intended to replace [...] 03/02/2008 Document Revised: 07/28/2012 Document Reviewed: 09/07/2014 ExitCare Patient Information 2015 [employer]. This information is not intended to replace [...] weeks. Ordered: Office Visit Level 3 Est 45320 Chronic fatigue Ordered: CBC Hemogram Office Visit Level 3 Est 52564 CVA (cerebral vascular accident) Ordered: Office Visit Level 3 Est 91576 Parkinsons disease Ordered: Office Visit Level 3 Est 23888
--- OUTSIDE RECORDS SUMMARY | 2017-08-11 12:05 | External Medical Summary | Referral Summary ---
:1940 Author Organization [facility] Address [address] [place] [address] [place] [address] Care Team Providers Name Role Phone Ayo Blair Primary Care Physician Encounter VC Date(s): 10/13/15 - 10/13/15 [facility] [address] [place] [address]- Discharge Disposition: 01-Home or Self Care Attending Physician: Ayo Blair MD Admitting Physician: Ayo Blair MD Vital Signs Most recent to oldest [Reference Range]: 1 Blood Pressure [90-140/60-90 mmHg] 164/88 mmHg *HI* (10/13/15 2:30 PM) Problem List Condition Effective Dates Status [...] BY MOUTH DAILY, # 30 tabs, eRx: [facility], TAKE ONE TABLET BY MOUTH DAILY Start Date: 09/19/15 Status: Orderedbenazepril 20 mg oral tablet See Instructions, TAKE ONE TABLET BY MOUTH IN THE AM AND 1/2 TAB AT HS, # 30 tabs, eRx: [facility],TAKE ONE TABLET BY MOUTH DAILY Start Date: 09/19/15 Status: Orderedbethanechol 25 mg oral tablet See Instructions, TAKE ONE TABLET BY MOUTH THREE TIMES A DAY, # 270 tabs, eRx: [facility], TAKE ONETABLET BY MOUTH THREE TIMES A DAY Start Date: 05/30/15 Status: OrderedbusPIRone 15 mg oral tablet 15 mg 1 tabs, Oral, TID, 0 Refill(s) Start Date: 10/04/15 Status: OrderedcarBAMazepine 200 mg oral tablet 1 tabs, Oral, TID, # 120 tabs, 0 Refill(s) Start Date: 11/30/13 Status: Orderedcarbidopa-levodopa 25 mg-100 mg oral tablet 2 tabs, Oral, TID, 0 Refill(s) Start Date: 11/30/13 Status: Orderedclopidogrel 75 mg oral tablet See Instructions, TAKE ONE TABLET BY MOUTH DAILY, # 30 tabs, 4 Refill(s), eRx: [facility], TAKE ONETABLET BY MOUTH DAILY Start Date: 09/05/15 Status: OrderedCymbalta 60 mg, Oral, Daily, 0 Refill(s) Start Date: 06/14/15 Status: Orderedgabapentin 600 mg oral tablet 1 tabs, Oral, BID, # 90 tabs, 0 Refill(s) Start Date: 11/30/13 Status: Orderedlevothyroxine 100 mcg (0.1 mg) oral tablet See Instructions, TAKE ONE TABLET BY MOUTH DAILY, # 90 tabs, 3 Refill(s), Pharmacy: [facility], TAKE ONE TABLET BY MOUTH DAILY Start Date: 10/13/15 Status: OrderedLORazepam 0.5 mg oral tablet 0.5 [...] 0 Refill( s) Start Date: 06/17/15 Status: Ordered Results Hematology Most recent to oldest [Reference Range]: 1 WBC [4.8-10.8 10*3/uL] 7.9 10*3/uL (10/13/15 3:28 PM) RBC [4.00-5.20] 3.81 *LOW* (10/13/15 3:28 PM) Hgb [12.0-16.0 gm/dL] 12.2 gm/dL (10/13/15 3:28 PM) Hct [37.0-47.0 %] 36.6 % *LOW* (10/13/15 3:28 PM) MCV [82.0-99.0 fL] 96.1 fL (10/13/15 3:28 PM) MCH [27.0-32.0 pg] 32.0 pg (10/13/15 3:28 PM) MCHC [32.0-36.0 gm/dL] 33.3 gm/dL (10/13/15 3:28 PM) RDW [11.5-14.5 %] 13.0 % (10/13/15 3:28 PM) Platelet [150-400 10*3/uL] 338 10*3/uL (10/13/15 3:28 PM) MPV [8.8-14.8 fL] 9.1 fL (10/13/15 3:28 PM) Immature Granulocytes [0.0-1.0 %] 0.1 % (10/13/15 3:28 PM) Neutrophils [51-75 %] 50 % *LOW* (10/13/15 3:28 PM) Lymphocytes [20-46 %] 40 % (5/26/16 3:28 PM) Monocytes [4-11 %] 9 % (10/13/15 3:28 PM) Eosinophils [0-4 %] 2 % (10/13/15 3:28 PM) Basophils [0-2 %] 0 % (10/13/15 3:28 PM) Neutro Absolute [1.90-7.00 10*3] 3.92 10*3 (10/13/15 3:28 PM) Lymph Absolute [0.80-3.30 10*3] 3.12 10*3 (10/13/15 3:28 PM) [place] Absolute [0.30-1.00 10*3] 0.70 10*3 (10/13/15 3:28 PM) Eos Absolute [0.00-0.50 10*3] 0.12 10*3 (10/13/15 3:28 PM) Baso Absolute [0.00-0.20 10*3] 0.03 10*3 (10/13/15 3:28 PM) Immunizations Vaccine Date Refusal Reason influenza virus vaccine, inactivated1 02/11/14 influenza virus vaccine, live 02/16/13 pneumococcal 23-polyvalent vaccine 01/20/02 tetanus-diphth toxoids (Td) adult/adol 03/20/99 1Location History: See scanned document Procedures Procedure Date Related Diagnosis Body Site Cystoscopy1 12/06/08 B[place]2 1urethral calibration, and dilatation hydrodistention, STL laser vaporation &amp ; stress urinay incont [id number]. Darling & Dr. Nehal Garcias 1979"s Social History Social History Type Response Smoking Status Former smoker; Type: Cigarettes Assessment and Plan No data available for this section
--- OUTSIDE RECORDS SUMMARY | 2017-08-11 12:05 | External Medical Summary | Referral Summary ---
:1940 Author Organization [facility] Address [address] [place] [address] Care Team Providers Name Role Phone Blair Ayo Giron Primary Care Physician Encounter VC Date(s): 06/28/16 - 06/28/16 [facility] [address] [place] [address] [place] Discharge Diagnosis: Neurogenic bladder Discharge Disposition: 01-Home or Self Care Attending Physician: Sherin Chau MD Admitting Physician: Sherin Chau MD Vital Signs Most recent to oldest [Reference Range]: 1 Blood Pressure [90-140/60-90 mmHg] 130/80 mmHg (06/28/16 10:52 AM) Problem List Condition Effective Dates Status [...] DAILY, # 30 tabs, 1 Refill(s), eRx: [facility] Start Date: 06/25/16 Status: Orderedbenazepril 20 mg oral tablet See Instructions, TAKE ONE TABLET BY MOUTH DAILY, # 90 tabs, 3 Refill(s), Pharmacy: [facility], TAKE ONE TABLET BY MOUTH DAILY Start Date: 06/08/16 Status: Orderedbethanechol 25 mg oral tablet See Instructions, TAKE ONE TABLET BY MOUTH THREE TIMES A DAY, # 270 tabs, eRx: [facility] Start Date: 05/15/16 Status: OrderedbusPIRone 10 [...] DAILY, # 30 tabs, 2 Refill(s), eRx: [facility] Start Date: 06/20/16 Status: OrderedCymbalta 120 mg, Oral, Daily, 0 [...] DAY WITH MEALS, # 180 tabs, eRx: [facility] Start Date: 06/20/16 Status: Orderedoxybutynin 10 mg/24 hr oral tablet, extended release 10 mg 1 tabs, Oral, Daily, # 30 tabs, 6 Refill(s), Pharmacy: [facility], 1 tabs Oral Daily,x30 days Start Date: 06/28/16 Stop Date: 01/24/17 Status: OrderedSEROquel 25 mg oral tablet 75 mg 3 tabs, Oral, Bedtime (once a day), 0 Refill(s) Start Date: 11/14/15 Status: Orderedsimvastatin 20 mg oral tablet See Instructions, TAKE ONE TABLET BY MOUTH AT BEDTIME, # 90 tabs, eRx: [facility] Start Date: 06/25/16 Status: OrderedtraMADol 50 mg oral tablet 50 [...] laser vaporation &amp ; stress urinay incont [id number]. Darling & Dr. 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 1.Neurogenic bladder Currently on Bethanechol. Will start Oxybutynin daily for urge urinary incontinence. RTC in 6 months for UDS. Ordered: oxybutynin, 10 mg 1 tabs, Oral, Daily, # 30 tabs, 6 Refill(s), Pharmacy: [facility], 1 tabs Oral Daily,x30 days
--- OUTSIDE RECORDS SUMMARY | 2017-08-11 12:05 | External Medical Summary | Continuity of Care Document ---
:1940 Author Organization [facility] LIVE Support Name Relationship Address Phone MAXI VIRAMONTES MD Unavailable [address] [facility] [address] [place] [address] JAX WEAVER MD Unavailable [address] [place] [address] [place] [address] ALFREDO WARE Unavailable [address] [address] Insurance Providers Payer Name Policy Number Subscriber Name Relationship Medicare [id number] Gisselle Ware 18 Self [facility] [id number] Gisselle Ware 18 Self Advance Directives Directive Response Recorded Date/Time Dr Mccray Resuscitation Status Do Not Resuscitate 08/14/14 11:48pm Resuscitation Documents on File Yes 08/14/14 11:51pm Chief Complaint and Reason for Visit Chief Complaint PARKINSON Reason for Visit HTN (hypertension) Dyslipidemia Parkinson disease Hypothyroidism OA (osteoarthritis) Hyponatremia with decreased serum osmolality TIA (transient ischemic attack) Acute right-sided weakness UTI (urinary tract infection) Problems Medical Problems Problem Onset Date Status CVA (cerebral infarction) Unknown Active Right hemiparesis Unknown Active Hypertension, poor control Unknown Active Acute ischemic stroke Unknown Active HTN (hypertension) Unknown Active Dyslipidemia Unknown Active Parkinson disease Unknown Active Hypothyroidism Unknown Active OA (osteoarthritis) Unknown Active Obesity (BMI 30.0-34.9) Unknown Active Hyponatremia with decreased serum osmolality Unknown Active Leukopenia Unknown Active CVA (cerebral infarction) Unknown Active Status post CVA Unknown Active TIA (transient ischemic attack) Unknown Active HTN (hypertension) Unknown Active TIA (transient ischemic attack) Unknown Active Hypertension, accelerated Unknown Active TIA (transient ischemic attack) Unknown Active Acute right-sided weakness Unknown Active Acute right-sided weakness Unknown Active UTI (urinary tract infection) Unknown Active Medications Medication Dose Route Sig Days/Qty Instructions Order Discontinued Status Date Date Calcium 1 Tab PO TWICE A 11/16/ Active Carbonate/Vitam DAY 10 in D3 Multivitamins 1 Tab PO DAILY 11/16/ Active 10 Aspirin 81 Mg PO DAILY 11/16/ /11/04 Discontinu 10 ed Meclizine Hcl 12.5 PO 12/06/ 06/26/09 Discontinu Mg NEEDED 09 ed Cyclobenzaprine 1 Tab PO 06/26/ 11/16/09 Discontinu Hcl NEEDED 10 ed Clopidogrel 1 Tab PO DAILY 11/16/ Active Bisulfate 10 Amlodipine 2.5 PO DAILY 11/16/ 10/09/10 Discontinu Besylate Mg 10 ed Amlodipine 10 Mg PO DAILY 10/09/ Active Besylate 11 Clopidogrel 75 Mg PO DAILY 10/09/ 08/05/13 Discontinu Bisulfate 11 ed Hydrocodone 1 Tab PO TWICE A 10/09/ Active Bit/Acetaminoph DAY PRN 11 en PAIN Carbidopa/Levod 1 PO SIX 08/05/ Active opa Each TIMES A 14 DAY Baclofen 10 Mg PO THREE 01/05/ Active TIMES A 14 DAY Carbamazepine 200 PO TWICE A 01/05/ Active Mg DAY 14 Gabapentin 600 PO TWICE A 01/05/ Active Mg DAY 14 Benazepril HCl 20 Mg PO DAILY 01/05/ Active 14 Levothyroxine 100 PO DAILY 01/05/ Active Sodium Mcg 14 Docusate Sodium 1 Cap PO TWICE A 30 Days 01/07/ Active DAY 14 Simvastatin 20 Mg PO BEDTIME Take 1 03/08/ Active tablet, by 14 mouth, 1 time a day (at BEDTIME). Tramadol HCl 50 Mg PO THREE 08/13/ Active TIMES A 15 DAY PRN PAIN Triamterene/Hyd 1 Tab PO DAILY 08/13/ 08/14/14 Discontinu rochlorothiazid 15 ed Clonazepam 0.5 PO THREE 08/13/ Active Tab TIMES A 15 DAY PRN ANXIETY Metoprolol 50 Mg PO TWICE 08/13/ Active Tartrate DAILY 15 WITH MEALS Bethanechol 1 Tab PO THREE 08/13/ Active Chloride TIMES A 15 DAY Aspirin 81 Mg PO DAILY 30 Days 08/14/ Active 15 Social History Social History Problem Response Recorded Date/Time Hx Substance Use No 08/13/2014 9:55am Hx Alcohol Use No 08/13/2014 9:55am Has the pt used tobacco in the last 12 months No 08/14/2014 11:53pm Tobacco Usage none 08/15/2014 5:03pm Query Response Start Date Stop Date Smoking Status Never smoker Hospital Discharge Instructions Instructions: Care Instructions: Reason for Hospitalization: HAVING MY RIGHT HIP SURGERY I was in the hospital because (patient own words): HAVING MY RIGHT HIP SURGERY Discharge Diet: REGULAR Patient Instructions: Posterior hip precautions to be exercises for 3 months post surgery Condition at time of discharge: Good Weight Ounces: 10.11 (oz) Dismissal Weight: 1.995 Bilirubin Level: 6.8 Congenital Heart Disease Screening Result: Pass Plan of Care Discharge Date 08/21/14 12:40pm Disposition 01 DISCHARGED HOME, SELF-CARE Prescriptions See Medications Section Functional Status Query Response Date Recorded Physical Hygiene Assist August 13, 2014 9:55am Physical Hygiene Assist August 13, 2014 9:55am Allergies, Adverse Reactions, Alerts Allergen Type Severity Reaction Status Last Updated Penicillin Adverse Reaction Mild VOMITING/DIARRHEA Active 08/13/14 Cephalexin Adverse Reaction Mild NAUSEA/ DIARRHEA Active 08/13/14 Amoxicillin Adverse Reaction Mild VOMITING/ DIARRHEA Active 08/13/14 Immunizations Name Given Type Hx Influenza Vaccination Y FALL 2013 Historical Hx Pneumococcal Vaccination 2001 Historical Hx Influenza Vaccination Y FALL 2013 Historical Vital Signs Acute Vital Signs Vital Response Date/Time Temperature (Fahrenheit) 97.3 deg F (96.8 - 99.1) Temperature (Calculated Celsius) 36.02190 degrees C (36.0 - 37.3) Pulse Rate (adult) 53 bpm (60 - 100) Respiratory Rate 20 breaths/min (10 - 20) O2 Sat by Pulse Oximetry 98 % (90 - 100) Oxygen Delivery Method Room Air Blood Pressure 169/71 mm Hg Blood Pressure Source Automatic Cuff Height 5 ft 5 in Weight 192 lb Body Mass Index 32.0 kg/m^2 Results Test Source Date Result Interp. Ref. Comments Range Activated Partial August 13, 32.4 SEC N 24-36 Thromboplast Time 2014 10:47am Alanine August 13 18 U/L N 9-52 Aminotransferase 2014 10:47am (ALT/SGPT) Albumin August 13, 4.3 G/DL N 3.5-5.0 2014 10:47am Albumin/Globulin August 13, 1.4 RATIO N 1.1-2.2 Ratio 2014 10:47am Alkaline August 13 95 U/L N 38-126 Phosphatase 2014 10:47am Anion Gap August 20, 9 MEQ/L N 5-15 2014 4:46am Aspartate Amino August 13 18 U/L N 14-36 Transf (AST/SGOT) 2014 10:47am B-Type Natriuretic October 09, 2010 25 PG/ML N 15-100 Peptide 12:10pm BUN/Creatinine August 20, 14 RATIO N 6-26 Ratio 2014 4:46am Band Neutrophils # December 06, 0.1 T/MM3 - COMMENT TO SCU 2008 8:00am AT 0800 Band Neutrophils % December 06, 1.0 % N 0-6 COMMENT TO SCU 2009 8:00am AT 0800 Basophils # (Auto) August 20, 0.0 T/MM3 N 0-0.2 2014 4:46am Basophils # December 06, 0.1 T/MM3 N 0-0.2 COMMENT TO SCU (Manual) 2008 8:00am AT 0800 Basophils % December 06, 1.0 % N 0-2 COMMENT TO SCU (Manual) 2008 8:00am AT 0800 Basophils (%) August 20, 0.0 % N 0-2 (Auto) 2014 4:46am Blood Urea Nitrogen August 20, 10.0 MG/DL N 7-17 2014 4:46am Calcium Level August 20, 9.6 MG/DL N 8.4-10.2 2014 4:46am Calculated August 20, 252 MOSM/KG L 261-280 Osmolality 2014 4:46am Carbamazepine August 13, 7.4 ug/mL - Carbamazepine (Tegretol) Level 2014 10:47am performed at [facility], Formerly named [facility] [address] [place], [place] [id number] Director Maria E Corona, DO Carbon Dioxide August 20, 29 MEQ/L N 22-30 Level 2014 4:46am Chemistry Specimen August 20, < 15 0-25 0-25: No Hemolysis.26-70: Slight Hemolysis - can falsely elevate K and Urine Hemolysis 2014 4:46am Protein. 71-285: Moderate Hemolysis - can falsely elevate K, Troponin I, CA 19-9, PTH, CSF GLucose, and Urine Protein, and can falsely decrease Phenytoin. 286-999: Gross Hemolysis - can falsely elevate K, Troponin I, CA 19-9, PTH, CSF Glucose, and Urine Protine, and can falsely decrease Phenytoin. Recommend specimen recollection. Chloride Level August 20, 93 MEQ/L L 98-107 2014 4:46am Cholesterol Level January 06, 139 MG/DL N 268-303 7977 4:22am Cholesterol/HDL January 06, 1.9 RATIO N 0-4.0 Ratio 2013 4:22am Conjugated May 25, 0.00 MG/DL N 0.00-0.3 Bilirubin 2012 9:30am 0 Creatinine August 20, 0.7 MG/DL N 0.7-1.2 2014 4:46am Eosinophils # August 20, 0.0 T/MM3 N 0-0.5 (Auto) 2014 4:46am Eosinophils # December 06, 0.0 T/MM3 N 0-0.5 COMMENT TO SCU (Manual) 2008 8:00am AT 0800 Eosinophils % December 06, 0.0 % N 0-4 COMMENT TO SCU (Manual) 2008 8:00am AT 0800 Eosinophils (%) August 20, 0.0 % N 0-4 (Auto) 2014 4:46am Free Thyroxine May 25, 0.89 NG/DL N 0.78-2.1 2012 9:30am 9 Globulin August 13, 3.0 G/DL N 2.4-3.6 2014 10:47am Glomerular August 20, 82 - Filtration Rate 2014 4:46am Calc Glucose Level August 20, 96 MG/DL N 65-110 2014 4:46am HDL Cholesterol January 06, 73 MG/DL H 40-60 Direct 2013 4:22am Hematocrit August 20, 33.9 % L 36-46 2014 4:46am Hemoglobin August 20, 11.7 GM/DL L 12-16 2014 4:46am Icterus Index August 20, < 2 0-7 2014 4:46am Immature August 20, 0.00 T/MM3 N 0.00-0.0 Granulocyte # 2014 4:46am 3 (Auto) Immature August 20, 0.0 % N 0.0-0.5 Granulocyte % 2014 4:46am (Auto) LDL Cholesterol, January 06, 53.2 L 66-159 Calculated 2013 4:22am Lab Scanned Report June 09, LAB TEST FORM - 2013 11:28am REQUEST [id number] Lymphocytes # August 20, 2.6 T/MM3 N 1-4.8 (Auto) 2014 4:46am Lymphocytes # December 06, 3.1 T/MM3 N 1-4.8 COMMENT TO SCU (Manual) 2008 8:00am AT 0800 Lymphocytes % December 06, 50.0 % H 23-45 COMMENT TO SCU (Manual) 2008 8:00am AT 0800 Lymphocytes (%) August 20, 48.9 % H 23-45 (Auto) 2014 4:46am Magnesium Level January 1.9 MG/DL N 1.6-2.3 2013 5:15pm Mean Corpuscular August 20, 32.1 UUG N 26-34 Hemoglobin 2014 4:46am Mean Corpuscular August 20, 34.5 GM/DL N 31-37 Hemoglobin Concent 2014 4:46am Mean Corpuscular August 20, 92.9 UM3 N 80-100 Volume 2014 4:46am Mean Platelet August 20, 8.5 UM3 L 9.4-12.4 Volume 2014 4:46am Monocytes # (Auto) August 20, 0.5 T/MM3 N 0-0.8 2014 4:46am Monocytes # December 06, 0.2 T/MM3 N 0-0.8 COMMENT TO SCU (Manual) 2008 8:00am AT 0800 Monocytes % December 06, 3.0 % N 0-9.0 COMMENT TO SCU (Manual) 2008 8:00am AT 0800 Monocytes (%) August 20, 9.3 % H 0-9.0 (Auto) 2014 4:46am PB-Iwk-N-Type May 25, 125 PG/ML N 0-175 Rule in cut points: < 50 years old=450; Natriuretic Peptide 2012 9:30am 50-75 years old=900; >75 years old=1800; When utilizing ProBNP rule-in cut points, adjustment for impaired renal function is typically not required. Neutrophils # August 20, 2.3 T/MM3 N 1.8-7.7 (Auto) 2014 4:46am Neutrophils # December 06, 2.8 T/MM3 N 1.8-7.7 COMMENT TO SCU (Manual) 2008 8:00am AT 0800 Neutrophils % December 06, 45.0 % N 33-66 COMMENT TO SCU (Manual) 2008 8:00am AT 0800 Neutrophils (%) August 20, 41.8 % N 33-66 (Auto) 2014 4:46am Platelet Count August 20, 221 T/MM3 N 916-128 3170 4:46am Potassium Level August 20, 4.2 MEQ/L N 3.6-5 2014 4:46am Prealbumin January 05, 28.0 MG/DL N 17.6-36. 2013 1:08pm 0 Prothromb Time August 13, 1.02 N 0.81-1.0 THERAPUTIC International Ratio 2014 10:47am 9 RANGE=2.00-3.00 FOR ANTI-THROMBOSIS THERAPUTIC RANGE=2.50-3.50 FOR IMPLANTED VALVE RDW Standard August 20, 45.7 FL N 36.9-50. Deviation 2014 4:46am 2 Red Blood Count August 20, 3.65 M/MM3 L 4.00-5.2 2014 4:46am 0 Sodium Level August 20, 131 MEQ/L L 294-821 5216 4:46am Thyroid Stimulating August 13, 3.30 MIU/L N 0.47-4.6 COMMENT emily Hormone (TSH) 2014 10:47am 8 Total Bilirubin August 13, 0.40 MG/DL N 0.20-1.3 2014 10:47am 0 Total Protein August 13, 7.3 G/DL N 6.3-8.2 2014 10:47am Triglycerides Level January 06, 64 MG/DL N 35-135 2013 4:22am Troponin I August 13, < 0.012 0-0.12 2014 10:47am ng/ml Turbidity August 20, < 20 0-20 2014 4:46am Unconjugated May 25, 0.10 MG/DL N 0.00-1.1 Bilirubin 2012 9:30am 0 Urinalysis Comment March 08, Microscopic - Has specimen 2013 3:30pm not ind. been collected/obtai gee? Y Urine Bacteria August 13, 4+ H - Has specimen 2014 12:10pm been collected/obtai gee? Y Urine Bilirubin August 13, Negative - Has specimen 2014 12:10pm been collected/obtai gee? Y Urine Blood August 13, Trace-intact H - Has specimen 2014 12:10pm been collected/obtai gee? Y Urine Collection August 13, Cleancatch-mid - Has specimen Type 2014 12:10pm stream been collected/obtai gee? Y Urine Color August 13, Yellow - Has specimen 2014 12:10pm been collected/obtai gee? Y Urine Culture August 13, Cult reflexed - Has specimen Indicated 2014 12:10pm &setup been collected/obtai gee? Y Urine Glucose (UA) August 13, Negative - Has specimen 2014 12:10pm been collected/obtai gee? Y Urine Ketones August 13, Negative - Has specimen 2015 12:10pm been collected/obtai gee? Y Urine Leukocyte August 13, Trace H - Has specimen Esterase 2014 12:10pm been collected/obtai gee? Y Urine Nitrite August 13, Positive H - Has specimen 2015 12:10pm been collected/obtai gee? Y Urine Protein August 13, Negative - Has specimen 2015 12:10pm been collected/obtai gee? Y Urine RBC August 13, 1-3 /HPF - Has specimen 2014 12:10pm been collected/obtai gee? Y Urine Specific August 13, 1.015 - Has specimen [place] 2014 12:10pm been collected/obtai gee? Y Urine Squamous January 22- - Has specimen Epithelial Cells 2013 been 7:26pm collected/obtai gee? Y Urine Turbidity August 13, Clear - Has specimen 2015 12:10pm been collected/obtai gee? Y Urine Urobilinogen August 13, 0.2 EU/DL - Has specimen 2014 12:10pm been collected/obtai gee? Y Urine WBC August 13, 10-20 /HPF H - Has specimen 2015 12:10pm been collected/obtai gee? Y Urine pH August 13, 6.0 - Has specimen 2014 12:10pm been collected/obtai gee? Y VLDL Cholesterol January 06, 12.8 MG/DL N 0-28 2013 4:22am Vitamin B12 Level January 05, 277 PG/ML N 114-180 5802 1:08pm White Blood Count August 20, 5.4 T/MM3 N 4.5-11.0 2014 4:46am Urine Culture Urine, August 13, Escherichia Clean 2014 12:40pm Coli Catch-Mid stream Name: GISSELLE WARE Unit #: [id number] : 1940 Sex: F DISCHARGE SUMMARY Admit Date: 08/13/14 Report #: [id number] General Date Date DATE: 08/14/14 TIME: 13:02 Attending Physician Herlinda More DO Admitting Physician Herlinda More DO Consulting Physician Katy Tierney MD Admitting Diagnosis (1) Acute right-sided weakness Status: Acute (2) TIA (transient ischemic attack) Status: Acute (3) Hyponatremia with decreased serum osmolality Status: Acute (4) Right hemiparesis Status: Chronic (5) Dyslipidemia Status: Chronic (6) OA (osteoarthritis) Status: Chronic (7) HTN (hypertension) Status: Chronic (8) Parkinson disease Status: Chronic (9) Hypothyroidism Status: Chronic (10) UTI (urinary tract infection) Discharge Diagnosis (1) Acute right-sided weakness Status: Acute (2) TIA (transient ischemic attack) Status: Acute (3) Hyponatremia with decreased serum osmolality Status: Acute (4) Right hemiparesis Status: Chronic (5) Dyslipidemia Status: Chronic (6) OA (osteoarthritis) Status: Chronic (7) HTN (hypertension) Status: Chronic (8) Parkinson disease Status: Chronic (9) Hypothyroidism Status: Chronic (10) UTI (urinary tract infection) Laboratory Laboratory Laboratory Tests Test 08/14/14 04:27 White Blood Count 5.6 T/MM3 Red Blood Count 3.78 M/MM3 Hemoglobin 12.2 GM/DL Hematocrit 35.2 % Mean Corpuscular Volume 93.1 UM3 Mean Corpuscular Hemoglobin 32.3 UUG Mean Corpuscular Hemoglobin 34.7 GM/DL Concent RDW Standard Deviation 46.2 FL Platelet Count 231 T/MM3 Mean Platelet Volume 8.4 UM3 Immature Granulocyte % (Auto) 0.0 % Neutrophils (%) (Auto) 45.6 % Lymphocytes (%) (Auto) 43.3 % Monocytes (%) (Auto) 11.1 % Eosinophils (%) (Auto) 0.0 % Basophils (%) (Auto) 0.0 % Immature Granulocyte # (Auto) 0.00 T/MM3 Neutrophils # (Auto) 2.6 T/MM3 Lymphocytes # (Auto) 2.4 T/MM3 Monocytes # (Auto) 0.6 T/MM3 Eosinophils # (Auto) 0.0 T/MM3 Basophils # (Auto) 0.0 T/MM3 Turbidity < 20 Sodium Level 131 MEQ/L Potassium Level 4.4 MEQ/L Chloride Level 93 MEQ/L Carbon Dioxide Level 29 MEQ/L Anion Gap 9 MEQ/L Blood Urea Nitrogen 13.0 MG/DL Creatinine 0.8 MG/DL Glomerular Filtration Rate 70 Calc BUN/Creatinine Ratio 16 RATIO Glucose Level 106 MG/DL Calculated Osmolality 253 MOSM/KG Calcium Level 9.7 MG/DL Icterus Index < 2 Chemistry Specimen Hemolysis < 15 Microbiology Microbiology Date/Time Procedure Status Source Growth 08/13/14 12:40 Urine Culture - Preliminary Resulted Urine, Clean Catch-Midstream Gram Negative Slim History of Present Illness Gisselle is a 73 year old female who has a longstanding history of CVA/ TIAs and routinely sees Dr. Tierney. She has been taking Plavix in addition to ASA which she reports stopped without physician authorization about a year ago because she was not appreciative of the degree of bruising she would get being on both of these medications. This am she woke up and could not get out of bed due to an increase in overall weakness. She describes her "whole body&quot ; felt immobile. History of CVA with residual rt sided hemiparesis starting about 3-4 years ago with multiple subsequent infarcts. She has been a patient on [facility]'s inpatient rehabilitation [facility] in the past. Gisselle was seen in the ER today and Dr. Tierney did see her there as well. Labwork showed a normal CBC with slightly depressed Na at 133 with 256 osmo. She does have a history of hyponatremia. Troponin < 0.012. UA showed positive nitrite, 4+ bacteria and 10-20 WBC. Culture sent. BP elevated 190s systolic in ER. EKG showed sinus anton at 53 bpm. IRU was called from ER and after acute evaluation, they will screen patient for possibility of admission. PResently, patient is being admitted to the hospitalist service under the care of Dr More as an observation for IVF, neuro consultation and PT assessment. Hospital Course 08/14 Continues to have deficits that could hopefully rehabilitate with inpt rehab therapy. Will dc to IRU for further cares and increase functionality. Continue diet with ground meat at this time. Hold Maxzide/HCTZ due to hyponatremia. Promote bowel movements, no BM in 4 days per pt. Urine cx growing gm neg rods. On levaquin. Continue therapy for 7 days. 08/13 Admitted to the hospital service under the care of Dr. More as observation for TIA, UTI with dehydration Consult Dr. Tierney from neurologic services who is patient's own neurologist Restart patient's aspirin 81 mg by mouth daily in addition to Plavix 75 mg Tegretol level to be drawn in addition to a TSH level Continue Zocor for risk reduction Patient did have a UTI in the ER, we will start Levaquin 500 mg IV daily Physical therapy and occupational therapy to evaluate and treat Speech therapy evaluate and treat and get guidance on diet Hydration with IV fluids Blood pressure high in the ER, resume patient's usual home medications. Utilize oral Protonix for GI protection In regards to CODE STATUS, as patient whether she has expressed her wishes pertaining to resuscitation, and she and both state that the records are on file at the hospital. In looking over records on the system, there is not a delineated advanced directive pertaining to this. At this time patient will be kept a full code. discharge activity time 35 minutes Problems: (1) Acute right-sided weakness Status: Acute (2) TIA (transient ischemic attack) Status: Acute (3) Hyponatremia with decreased serum osmolality Status: Acute (4) Right hemiparesis Status: Chronic (5) Dyslipidemia Status: Chronic (6) OA (osteoarthritis) Status: Chronic (7) HTN (hypertension) Status: Chronic (8) Parkinson disease Status: Chronic (9) Hypothyroidism Status: Chronic (10) UTI (urinary tract infection) Status: Acute GI Prophylaxis: Protonix Code Status Full Code, unverified Home Meds Active Scripts Docusate Sodium (Colace)100 Mg Capsule1 Cap PO BID 30 Days Prov:GRAYSON BRYAN MD 01/07/14 Reported Medications Bethanechol Chloride 25 Mg Tablet1 Tab PO TID BEST ON EMPTY STOMACH 08/13/14 Metoprolol Tartrate 50 Mg [id number] Mg PO BIDWM 08/13/14 Clonazepam 0.5 Mg Tablet0.5 Tab PO TID PRN (ANXIETY) 08/13/14 Triamterene/Hydrochlorothiazid (Triamterene-Hctz 37.5-25 mg Tb)1 Each Tablet1 Tab PO DAILY 08/13/14 Tramadol HCl 50 Mg Sernti36 Mg PO TID PRN (PAIN) 08/13/14 Simvastatin 20 Mg Xjirww63 Mg PO HS Take 1 tablet, by mouth, 1 time a day (at BEDTIME). 03/08/14 Levothyroxine Sodium 100 Mcg Pllyhw679 Mcg PO DAILY 01/05/14 Benazepril HCl 20 Mg Estpll02 Mg PO DAILY 01/05/14 Gabapentin 600 Mg Bvtoyc334 Mg PO BID 01/05/14 Carbamazepine 200 Mg Klkkcf318 Mg PO BID 01/05/14 Baclofen 10 Mg Jfxnja35 Mg PO TID 01/05/14 Carbidopa/Levodopa (Carbidopa-Levo 25-100 Tab)1 Each Tablet1 Each PO 6XD 08/05/13 Hydrocodone Bit/Acetaminophen (Climax 5)1 Udtab Tablet1 Tab PO BID PRN (PAIN) 10/09/10 Amlodipine Besylate (Norvasc)10 Mg Vtjncs73 Mg PO DAILY 10/09/10 Clopidogrel Bisulfate (Plavix)75 Mg Tablet1 Tab PO DAILY 11/16/09 Multivitamins (Multivitamin)1 Tab Tablet1 Tab PO DAILY 11/16/09 Calcium Carbonate/Vitamin D3 (Calcium + D 600 Mg Tablet)1 Tab Tablet1 Tab PO BID 11/16/09 Discharge Disposition stable Copies To 1: JAX WEAVER MD, TAMARA ARNP Aug 14, 2014 13:02 Procedures Procedure Status Date Provider(s) ROUTINE VENIPUNCTURE completed 08/13/14 ROUTINE VENIPUNCTURE completed 08/13/14 CT HEAD/BRAIN W/O DYE completed 08/13/14 CHEST X-RAY 1 VIEW FRONTAL completed 08/13/14 METABOLIC PANEL TOTAL CA completed 08/13/14 COMPREHEN METABOLIC PANEL completed 08/13/14 ASSAY CARBAMAZEPINE TOTAL completed 08/13/14 URINALYSIS AUTO W/SCOPE completed 08/13/14 ASSAY THYROID STIM HORMONE completed 08/13/14 ASSAY OF TROPONIN QUANT completed 08/13/14 COMPLETE CBC W/AUTO DIFF WBC completed 08/13/14 COMPLETE CBC W/AUTO DIFF WBC completed 08/13/14 PROTHROMBIN TIME completed 08/13/14 THROMBOPLASTIN TIME PARTIAL completed 08/13/14 CULTURE AEROBIC IDENTIFY completed 08/13/14 URINE CULTURE/COLONY COUNT completed 08/13/14 MICROBE SUSCEPTIBLE PASCALE completed 08/13/14 EVALUATE SWALLOWING FUNCTION completed 08/13/14 ELECTROCARDIOGRAM TRACING completed 08/13/14 THER/PROPH/DIAG IV INF INIT completed 08/13/14 THER/PROPH/DIAG IV INF ADDON completed 08/13/14 PT EVALUATION completed 08/13/14 OT EVALUATION completed 08/13/14 EMERGENCY DEPT VISIT completed 08/13/14 [id number] ITEM OR SERVICE completed 08/13/14 [id number] ITEM OR SERVICE completed 08/13/14 [id number] ITEM OR SERVICE completed 08/13/14 [id number] ITEM OR SERVICE completed 08/13/14 [id number] ITEM OR SERVICE completed 08/13/14 [id number] ITEM OR SERVICE completed 08/13/14 [id number] ITEM OR SERVICE completed 08/13/14 [id number] ITEM OR SERVICE completed 08/13/14 [id number] ITEM OR SERVICE completed 08/13/14 [id number] ITEM OR SERVICE completed 08/13/14 [id number] ITEM OR SERVICE completed 08/13/14 [id number] ITEM OR SERVICE completed 08/13/14 [id number] ITEM OR SERVICE completed 08/13/14 [id number] ITEM OR SERVICE completed 08/13/14 [id number] ITEM OR SERVICE completed 08/13/14 [id number] ITEM OR SERVICE completed 08/13/14 [id number] ITEM OR SERVICE completed 08/13/14 [id number] ITEM OR SERVICE completed 08/13/14 [id number] ITEM OR SERVICE completed 08/13/14 [id number]-KLIJGLE ITEM OR SERVICE completed 08/13/14 [id number]-QAVNEYH ITEM OR SERVICE completed 08/13/14 [id number] ITEM OR SERVICE completed 08/13/14 [id number] ITEM OR SERVICE completed 08/13/14 [id number] ITEM OR SERVICE completed 08/13/14 [id number] ITEM OR SERVICE completed 08/13/14 [id number]-JAKGGYS ITEM OR SERVICE completed 08/13/14 [id number] ITEM OR SERVICE completed 08/13/14 [id number] ITEM OR SERVICE completed 08/13/14 [id number] ITEM OR SERVICE completed 08/13/14 [id number] ITEM OR SERVICE completed 08/13/14 [id number]-ZPOKMZR ITEM OR SERVICE completed 08/13/14 [id number] ITEM OR SERVICE completed 08/13/14 [id number] ITEM OR SERVICE completed 08/13/14 [id number] ITEM OR SERVICE completed 08/13/14 [id number] ITEM OR SERVICE completed 08/13/14 [id number] ITEM OR SERVICE completed 08/13/14 [id number] ITEM OR SERVICE completed 08/13/14 [id number] ITEM OR SERVICE completed 08/13/14 [id number] ITEM OR SERVICE completed 08/13/14 [id number] ITEM OR SERVICE completed 08/13/14 OT SELF CARE CURRENT STATUS completed 08/13/14 OT SELF CARE GOAL STATUS completed 08/13/14 OT SELF CARE GOAL STATUS completed 08/13/14 OT SELF CARE DISCHG STATUS completed 08/13/14 ST SWALLOW CURRENT STATUS completed 08/13/14 ST SWALLOW GOAL STATUS completed 08/13/14 ST SWALLOW DISCHARGE STATUS completed 08/13/14 [id number]"INJECTION, LEVOFLOXACIN, 250 MG" completed 08/13/14 [id number]"INJECTION, LEVOFLOXACIN, 250 MG" completed 08/13/14 [id number]% DEXTROSE/WATER (500 ML=1 UNIT) completed 08/13/14 [id number]% DEXTROSE/WATER (500 ML=1 UNIT) completed 08/13/14 Encounters Encounter Location Date/Time Discharged Inpatient [facility] 08/14/14 7:00pm Discharged Inpatient [facility] 08/13/14 11:56am Recent Diagnosis HTN (hypertension) Dyslipidemia Parkinson disease Hypothyroidism OA (osteoarthritis) Hyponatremia with decreased serum osmolality TIA (transient ischemic attack) Acute right-sided weakness UTI (urinary tract infection)
[2017-08-11] MEDS ORDERED: HYDROCODONE/APAP 5mg/325mg TABLET PO ONE (12:06)
--- NOTE | 2017-08-11 12:10 | Emergency Department Report ---
Fall HPI - General Chief Complaint: Fall Stated Complaint: fall,l swollen knee and inj ankle Time Seen by Provider: 08/11/17 12:00 Source: patient Mode of arrival: wheelchair Limitations: no limitations - History of Present Illness HPI Narrative: Pt presents with a complaint of left knee pain and swelling. Pt fell 4-5 days ago from a standing position and has had progressively increasing pain and swelling since. PT does have a history of arthritis to the same joint however pain and swelling are well above baseline. Pt was able to walk with walker yesterday but is unable to bear weight at all today. She normally take s Tramadol BID and reports it has been helping with the pain MD complaint: fall Onset (ago): day(s) Fall from: standing Place fall occurred: home Loss of consciousness: none Prolonged down time: no Context: tripped/slipped Location of injury - extremities: Left: knee, ankle Severity: moderate Associated symptoms (after fall): denies - Related Data Home Medications Medication Instructions Recorded Confirmed Simvastatin 20 mg PO HS #0 03/08/14 08/11/17 Seroquel (quetiapine) 25 mg tablet 75 mg PO HS tab 11/27/16 08/11/17 Ultram (Tramadol) 50 mg tablet 50 mg PO Q8H PRN tab 11/27/16 08/11/17 levothyroxine 100 mcg tablet 100 mcg PO DAILY tab 11/27/16 08/11/17 Amlodipine [Norvasc] 10 mg PO DAILY 08/11/17 08/11/17 Benazepril HCl 40 mg PO HS 08/11/17 08/11/17 Bethanechol [Urecholine] 25 mg PO TID 08/11/17 08/11/17 Buspirone [Buspar] 20 mg PO TID 08/11/17 08/11/17 Carbidopa/Levodopa 1 tab PO 5XD 08/11/17 08/11/17 [Carbidopa-Levodopa 25-100 Tab] Clopidogrel Bisulfate [Clopidogrel] 75 mg PO DAILY 08/11/17 08/11/17 Duloxetine [Cymbalta] 60 mg PO DAILY 08/11/17 08/11/17 Entacapone 200 mg PO TID 08/11/17 08/11/17 Gabapentin [Neurontin] 300 mg PO BID 08/11/17 08/11/17 Metoprolol Tartrate 50 mg PO BID 08/11/17 08/11/17 Oxybutynin Chloride [Oxybutynin 10 mg PO DAILY 08/11/17 08/11/17 Chloride ER] carBAMazepine [Carbamazepine] 200 mg PO TID 08/11/17 08/11/17 Previous Rx's Medication Instructions Recorded carbidopa ER 50 mg-levodopa 200 mg 1 tab PO TID #90 tab 02/28/17 tablet,extended release Hydrocodone/APAP 5/325 [[place] 1 tab PO Q4H PRN #20 tab 08/12/17 5/325] Allergies Allergy/AdvReac Type Severity Reaction Status Date / Time amoxicillin AdvReac Mild VOMITING/ Verified 08/11/17 15:49 DIARRHEA cephalexin AdvReac Mild NAUSEA/ Verified 08/11/17 15:49 DIARRHEA Penicillins AdvReac Mild VOMITING/DI Verified 08/11/17 15:49 ARRHEA Review of Systems All systems: reviewed and negative except as stated Constitutional: Reports: as per HPI Musculoskeletal: Reports: as per HPI Integumentary: Reports: as per HPI [facility] Medical History (Last Reviewed 12/03/16 @ 10:32 by Christie Boateng Zee) Anxiety (Chronic Medical) Cataracts, bilateral (Chronic Medical) HTN (hypertension) (Chronic Medical) Hypercholesterolemia (Chronic Medical) Parkinson disease (Chronic Medical) Surgical History: bladder lift Family History: Family History (Last Reviewed 07/08/17 @ 14:37 by ABHISHEK Whitney) Mother Heart disease Brother High blood pressure - Social History Smoking status: Former smoker Substance use type: does not use Alcohol intake frequency: does not drink Household members: spouse Current occupational status: retired Physical Exam - Limitations Limitations: no limitations - General General appearance: alert - Normal Exams: Head:: Normocephalic without trauma Chest/Respirations:: Clear all hayes, with good airflow, and symmetry bilaterally Cardiovascular:: Regular rate and rhythm, without murmur or gallop Abdomen:: Bowel sounds positive, soft, non-tender, non-distended Integumentary:: No rashes Neurological:: Patient is alert, and oriented, cranial nerves, motor/sensory/ cerebellar (hx of Parkinsons), exams w/o gross deficits, to observation Psychiatric:: Patient exhibits, appropriate attention, emotion and affect - Expanded Lower Extremity Exam left Knee exam: Present: full ROM, tenderness, swelling, knee extension intact, other (bruising, edematous, and warm to touch) Ankle exam: Present: full ROM, tenderness, swelling. Absent: deformity, crepitus Course Vital Signs Temperature 98.1 F 08/11/17 11:00 Pulse Rate 68 08/11/17 11:00 Respiratory Rate 20 08/11/17 11:00 Blood Pressure 178/76 H 08/11/17 11:00 Pulse Oximetry 94 08/11/17 11:00 Temperature 96.7 F L 08/12/17 13:01 Pulse Rate 61 08/12/17 13:01 Respiratory Rate 16 08/12/17 13:01 Blood Pressure 172/89 H 08/12/17 13:01 Pulse Oximetry 97 08/12/17 13:01 Fall - MDM Narrative Medical decision making narrative: Lab and X ray reviewed. Pt has a dislocated patella and is unable to ambulate at this time. Pt to be placed observation with the hospitalist at this time. Case reviewed with ortho who will consult for further diagnostics and care. Plan discussed with pt and family who voice understanding. - Differential Diagnosis Likely: compression fracture (tibial plateau fracture, joint effusion, cellulitis) - Lab Data Attestation: I reviewed the patient's lab results. Result diagrams: 08/11/17 13:16 08/11/17 13:16 Lab Results 08/11/17 08/11/17 Range/Units 13:16 13:16 WBC 8.6 (4.5-11.0) T/MM3 RBC 3.92 L (4.00-5.20) M/MM3 Hgb 12.6 (12-16) GM/DL Hct 37.7 (36-46) % MCV 96.2 (80-100) UM3 MCH 32.1 (26-34) UUG MCHC 33.4 (31-37) GM/DL RDW Std Deviation 43.6 (36.9-50.2) FL Plt Count 248 (130-400) T/MM3 MPV 9.1 L (9.4-12.4) UM3 Immature Gran % (Auto) 0.2 (0.0-0.5) % Neut % (Auto) 63.3 (33-66) % Lymph % (Auto) 27.0 (23-45) % [place] % (Auto) 8.1 (0-9.0) % Eos % (Auto) 1.2 (0-4) % Baso % (Auto) 0.2 (0-2) % Neut # (Auto) 5.5 (1.8-7.7) T/MM3 Lymph # (Auto) 2.3 (1-4.8) T/MM3 [place] # (Auto) 0.7 (0-0.8) T/MM3 Eos # (Auto) 0.1 (0-0.5) T/MM3 Baso # (Auto) 0.0 (0-0.2) T/MM3 Abs Immat Gran (auto) 0.02 (0.00-0.03) T/MM3 Turbidity < 20 (0-20) Sodium 139 (134-144) MEQ/L Potassium 4.4 (3.6-5) MEQ/L Chloride 98 (98-107) MEQ/L Carbon Dioxide 28 (22-30) MEQ/L Anion Gap 13 (5-15) MEQ/L BUN 11.0 (7-17) MG/DL Creatinine 0.6 L (0.7-1.2) mg/dL GFR Calculation 97 BUN/Creatinine Ratio 18 (6-26) RATIO Glucose 113 H (65-110) MG/DL Calculated Osmolality 268 (261-280) MOSM/KG Calcium 9.8 (8.4-10.2) MG/DL Total Bilirubin 0.50 (0.20-1.30) MG/DL Icterus Index < 2 (0-7) AST 20 (14-36) U/L ALT < 4 (1-35) U/L Alkaline Phosphatase 85 (38-126) U/L Total Protein 7.7 (6.3-8.2) g/dL Albumin 4.5 (3.5-5.0) g/dL Globulin 3.2 (2.4-3.6) G/DL Albumin/Globulin Ratio 1.4 (1.1-2.2) RATIO Specimen Hemolysis < 15 (0-25) - Radiology Data Attestation: I reviewed the patient's radiology results. Disposition Clinical Impression: Closed patellar dislocation Qualifiers: Encounter type: initial encounter Laterality: left Qualified Code(s): S83.005A - Unspecified dislocation of left patella, initial encounter Disposition: C Acute Care Condition: Improved Time of Disposition: 14:44 - Seen By: midlevel
[2017-08-11] MEDS ORDERED: SALINE FLUSH 10ml SYRINGE IVF PRN (13:05)
--- NOTE | 2017-08-11 15:29 | History & Physical Report ---
History of Present Illness Date: 08/11/17 Chief complaint: left knee patellar dislocation HPI: Patient is a 76 yr old female who resides at home with her . On 08/08 patient fell after losing her balance. Since that time she has had continued pain in the left knee and left ankle. Today the pain got so severe that she was unable to weight-bear safely. She does normally walk with a walker. Due to the severity of her pain. She presented to the emergency room for further evaluation and treatment. Routine labs were obtained that were unremarkable. X-ray of the left knee did reveal patellar dislocation medially. She continues to be unable to weight-bear, thus the hospitalist services were contacted and accepted patient for outpatient observation for further evaluation and treatment. Review of Systems All systems PM: 10-point ROS was reviewed, no additional remarkable complaints except - Musculoskeletal Musculoskeletal: Present: other (Left knee pain) Past Medical History Patient Stated Medical History Parkinson disease history of CVA Hypertension Hypercholesterolemia Anxiety Cataracts Osteoarthritis depression Surgical History: bladder lift Family History Updates: Mother-heart disease. Father-Parkinson's. Brother- hypertension - Social History Smoking status: Former smoker (quit 30 yrs ago) Substance use type: does not use Alcohol intake frequency: does not drink Housing: house Household members: spouse Current occupational status: retired Social history: PCP Dr Garcias Neurologist-Dr. Tierney Medications Home Medications Medication Instructions Recorded Confirmed Type Simvastatin 20 mg PO HS #0 03/08/14 08/11/17 History Seroquel (quetiapine) 25 mg tablet 75 mg PO HS tab 11/27/16 08/11/17 History Ultram (Tramadol) 50 mg tablet 50 mg PO Q8H PRN tab 11/27/16 08/11/17 History levothyroxine 100 mcg tablet 100 mcg PO DAILY tab 11/27/16 08/11/17 History carbidopa ER 50 mg-levodopa 200 mg 1 tab PO TID #90 tab 02/28/17 08/11/17 Rx tablet,extended release Amlodipine [Norvasc] 10 mg PO DAILY 08/11/17 08/11/17 History Benazepril HCl [Benazepril HCl] 40 mg PO HS 08/11/17 08/11/17 History Bethanechol [Urecholine] 25 mg PO TID 08/11/17 08/11/17 History Buspirone [Buspar] 20 mg PO TID 08/11/17 08/11/17 History Carbidopa/Levodopa 1 tab PO 5XD 08/11/17 08/11/17 History [Carbidopa-Levodopa 25-100 Tab] Clopidogrel Bisulfate [Clopidogrel] 75 mg PO DAILY 08/11/17 08/11/17 History Duloxetine [Cymbalta] 60 mg PO DAILY 08/11/17 08/11/17 History Entacapone [Entacapone] 200 mg PO TID 08/11/17 08/11/17 History Gabapentin [Neurontin] 300 mg PO BID 08/11/17 08/11/17 History Metoprolol Tartrate [Metoprolol 50 mg PO BID 08/11/17 08/11/17 History Tartrate] Oxybutynin Chloride [Oxybutynin 10 mg PO DAILY 08/11/17 08/11/17 History Chloride ER] carBAMazepine [Carbamazepine] 200 mg PO TID 08/11/17 08/11/17 History Allergies Allergy/AdvReac Type Severity Reaction Status Date / Time amoxicillin AdvReac Mild VOMITING/ Verified 08/11/17 15:49 DIARRHEA cephalexin AdvReac Mild NAUSEA/ Verified 08/11/17 15:49 DIARRHEA Penicillins AdvReac Mild VOMITING/DI Verified 08/11/17 15:49 ARRHEA Exam Vital Signs: Temperature 98.1 F 08/11/17 11:00 Pulse Rate 59 L 08/11/17 11:30 Respiratory Rate 20 08/11/17 11:00 Blood Pressure 178/83 H 08/11/17 11:23 Pulse Oximetry 93 08/11/17 11:30 Height/Weight/BMI: Height 1.65 m Weight 102.6 kg - Constitutional Present: no acute distress, well nourished, well developed - Routine HEENT Exam Eye: Present: EOMI ENT: Present: mucous membranes moist, dentition normal - Routine Respiratory Exam Present: CTA bilaterally. Absent: wheezes - Routine Cardiovascular Exam Present: RRR, S1, S2. Absent: murmur - Routine Abdominal Exam Present: soft, normoactive bowel sounds, non distended. Absent: tenderness - Routine Extremities Exam Present: pulses intact Comments: Tenderness with gentle palpation of left knee. Will not tolerated any range of motion. Immobilizer intact - Routine Skin Exam Present: intact, dry, warm - Routine Neurological Exam Present: alert, oriented X3, CN II-XII intact, tremors (chronic) - Routine Psychiatric Exam Present: normal affect Results - Labs CBC & Chem 7: 08/11/17 13:16 08/11/17 13:16 Assessment and Plan Assessment and Plan: Impression Left knee dislocation Fall Unable to weight-bear Parkinson's Hypertension History of CVA Plan Admit patient to outpatient observation under the care of Dr. Haro Consultation placed with Dr. Celis for further orthopedic recommendations Will obtain MRI of the left knee for further evaluation. Leg immobilizer to left knee for support Monitor patient's blood pressure. Continue all home medications at this time. Note she is on Plavix Case Discussed with IRU director, however unfortunately patient does not qualify currently for inpatient rehabilitation I'm concerned that patient is unsafe to be discharged home. Given that she is unable to weight-bear and has been is not able to care for her. Will plan for further orthopedic evaluation Need to discuss discharge planning tomorrow with case management We did discuss advanced directives and patient is unsure of her wishes. At this time we will place her full code Will discuss further orders and plan of care with attending, Dr. Haro At time of discharge medical care will return to primary care provider, Dr Garcias I have seen and evaluated the patient independently. I agree with the evaluation and plan documented by the B[employer] SEWER above. Patient states that her pain is still uncontrolled and that she feels very anxious. She says anxiety is a chronic problem for her. I added prn ativan and changed tramadol to norco as she tells me tramadol isn't working at home. MRI planned to further evaluate knee per ortho. Immobilizer placed in ER should relocate the patella. BP high in the 170's - will treat pain and anxiety and recheck in about an hour. Resuscitation Status: Full Code - Time spent with patient Time with patient PN: 30 minutes - Physician Narrative Narrative: Date: 08/11/17 Time: 1526 Hospital Course Summary Disclaimer: The visit summary below is not to be considered part of the above Progress Note. Hospital Course: Impression Left knee dislocation Fall Unable to weight-bear Parkinson's Hypertension History of CVA Plan Admit patient to outpatient observation under the care of Dr. Haro Consultation placed with Dr. Celis for further orthopedic recommendations Will obtain MRI of the left knee for further evaluation. Leg immobilizer to left knee for support Monitor patient's blood pressure. Continue all home medications at this time. Note she is on Plavix Case Discussed with IRU director, however unfortunately patient does not qualify currently for inpatient rehabilitation I'm concerned that patient is unsafe to be discharged home. Given that she is unable to weight-bear and has been is not able to care for her. Will plan for further orthopedic evaluation Need to discuss discharge planning tomorrow with case management We did discuss advanced directives and patient is unsure of her wishes. At this time we will place her full code Will discuss further orders and plan of care with attending, Dr. Haro At time of discharge medical care will return to primary care provider, Dr Garcias
[2017-08-11] MEDS ORDERED: TRAMADOL 50 MG TABLET PO PRN (15:32)
[2017-08-11] MEDS ORDERED: MORPHINE SULFATE 2mg INJECTION IVP PRN (15:36)
[2017-08-11] MEDS ORDERED: FALL RISK - PHARMACY CONSULT XX ONE (15:45)
[2017-08-11 15:47] VITALS: BMI 37.3
[2017-08-11] MEDS ORDERED: LORazepam 0.5 MG TABLET PO PRN (16:02)
[2017-08-11] MEDS ORDERED: HYDROCODONE/APAP 5mg/325mg TABLET PO PRN (16:04)
[2017-08-11] MEDS: ACETAMINOPHEN 500 MG TABLET PO SCH ×3 (16:16→23:32)
--- NOTE | 2017-08-11 20:03 | Magnetic Resonance Report ---
Indication: left patellar dislocation PROCEDURE: MR knee LT wo con: Encounter: Initial Comparison: Radiographs from the same date Technique: Multiplanar multisequence MR imaging of the left knee was performed without contrast. Findings: The menisci have been almost completely destroyed, presumably by degenerative changes and a chronic inflammatory process. No visible ACL. There are a few PCL fibers that appear intact. The MCL is partially torn and displaced by the large joint effusion. The lateral collateral ligament complex is displaced by the large joint effusion and partially torn. The extensor mechanism is intact. No acute fracture identified. The patella is laterally dislocated. The medial patellar retinaculum is stretched but not completely torn. There is a large complex joint effusion that may represent a chronic hemarthrosis with or without pigmented villonodular synovitis. The cartilage of the articular surfaces has been completely eroded. There is focal edema in the fibular head that could be due to bone contusion or nondisplaced trabecular fracture. Chronic depression of the lateral tibial plateau with remodeling of the tibial plateau and lateral femoral condyle. There is muscular tearing of the lateral head of the gastrocnemius muscle. Possible ruptured Lance's cyst. Impression: 1. Acute and chronic changes which could be due to rheumatoid arthritis, amyloidosis, gout or PVNS. 2. Lateral patellar dislocation which may be acute or chronic. There is a chronic appearing, joint effusion possibly representing a chronic hemarthrosis. Diagnostic joint aspiration may be helpful. 3. Severe interior derangement as well with destruction of the menisci, cruciate and collateral ligaments. .
[2017-08-11] MEDS: ENTACAPONE 200 MG TABLET PO SCH ×2 (20:40→20:46)
[2017-08-11] MEDS: BUSPIRONE 10 MG TABLET PO SCH (20:40)
[2017-08-11] MEDS: CarBAMazepine 200 MG TABLET PO SCH (20:41)
[2017-08-11] MEDS: BETHANECHOL 25 MG TABLET PO SCH (20:41)
--- NOTE | 2017-08-11 20:43 | Orthopedic Consult Note ---
Orthopedic Consultation HPI - Consultation Info Consult Date: 08/11/17 Attending Physician: Lisa Haro DO Consult Reason: joint pain - History of Present Illness Pt presented to the ER today with a complaint of left knee pain and swelling. This knee has been bothersome for many years and has moderate valgus deformity and advanced OA with erosion of the lateral tibial plateau. She reports falling 4-5 days ago as she was walking from her bathroom to the kitchen. She isn't sure the exact details around the fall but thinks she fell forward and twisted. She isn't sure if the knee hit the floor or not. She was able to get up and walk after the fall but has become more painful over the last few days and wasn't able to walk without severe pain today. She has been unable to lift and bend the knee and feels it has been more swollen than normal. She hasn 't had a cortisone injection in the knee for over 4 months. Denies numbness or tingling in the lower leg, but has some ankle pain. She feels the knee pain and deformity are worse than normal. Review of Systems - Constitutional Constitutional: Absent: chills, fever(s), night sweats - Cardiovascular Cardiovascular: Absent: chest pain, palpitations, syncope - Respiratory Respiratory: Absent: cough, dyspnea, wheezing - Gastrointestinal Gastrointestinal: Absent: diarrhea, nausea, vomiting - Genitourinary Genitourinary General: Absent: fever(s) - Integumentary/Breasts Integumentary: Present: as per HPI - Neurological Neurological: Absent: paresthesias, tingling, paralysis/paresis - Psychiatric Psychiatric: Present: other (reports difficulties with memory) - Hematologic/Lymphatic Hematologic/Lymphatic: Absent: easy bleeding, easy bruising [facility] Patient Stated Medical History Cerebrovascular Accident Yes Parkinson's Disease Yes Transient Ischemic Attacks ( Yes TIA) Hypertension Yes Pneumonia Yes Osteoarthritis Yes: Left Knee Depression Yes Clinic Medical History (Last Reviewed 12/03/16 @ 10:32 by ABHISHEK Whitney) Anxiety (Chronic Medical) Cataracts, bilateral (Chronic Medical) HTN (hypertension) (Chronic Medical) Hypercholesterolemia (Chronic Medical) Parkinson disease (Chronic Medical) Surgical History: bladder lift Family History: Family History (Last Reviewed 07/08/17 @ 14:37 by Christie M Kilo, RMA) Mother Heart disease Brother High blood pressure Family History Updates: Mother-heart disease. Father-Parkinson's. Brother- hypertension - Social History Smoking status: Former smoker (quit 30 yrs ago) Substance use type: does not use Alcohol intake frequency: does not drink Housing: house Household members: spouse Current occupational status: retired Medications Home Medications Medication Instructions Recorded Confirmed Type Simvastatin 20 mg PO HS #0 03/08/14 08/11/17 History Seroquel (quetiapine) 25 mg tablet 75 mg PO HS tab 11/27/16 08/11/17 History Ultram (Tramadol) 50 mg tablet 50 mg PO Q8H PRN tab 11/27/16 08/11/17 History levothyroxine 100 mcg tablet 100 mcg PO DAILY tab 11/27/16 08/11/17 History carbidopa ER 50 mg-levodopa 200 mg 1 tab PO TID #90 tab 02/28/17 08/11/17 Rx tablet,extended release Amlodipine [Norvasc] 10 mg PO DAILY 08/11/17 08/11/17 History Benazepril HCl [Benazepril HCl] 40 mg PO HS 08/11/17 08/11/17 History Bethanechol [Urecholine] 25 mg PO TID 08/11/17 08/11/17 History Buspirone [Buspar] 20 mg PO TID 08/11/17 08/11/17 History Carbidopa/Levodopa 1 tab PO 5XD 08/11/17 08/11/17 History [Carbidopa-Levodopa 25-100 Tab] Clopidogrel Bisulfate [Clopidogrel] 75 mg PO DAILY 08/11/17 08/11/17 History Duloxetine [Cymbalta] 60 mg PO DAILY 08/11/17 08/11/17 History Entacapone [Entacapone] 200 mg PO TID 08/11/17 08/11/17 History Gabapentin [Neurontin] 300 mg PO BID 08/11/17 08/11/17 History Metoprolol Tartrate [Metoprolol 50 mg PO BID 08/11/17 08/11/17 History Tartrate] Oxybutynin Chloride [Oxybutynin 10 mg PO DAILY 08/11/17 08/11/17 History Chloride ER] carBAMazepine [Carbamazepine] 200 mg PO TID 08/11/17 08/11/17 History Allergies Allergy/AdvReac Type Severity Reaction Status Date / Time amoxicillin AdvReac Mild VOMITING/ Verified 08/11/17 15:49 DIARRHEA cephalexin AdvReac Mild NAUSEA/ Verified 08/11/17 15:49 DIARRHEA Penicillins AdvReac Mild VOMITING/DI Verified 08/11/17 15:49 ARRHEA Exam - Constitutional Vital Signs: Temperature 97.1 F 08/11/17 15:56 Pulse Rate 72 08/11/17 17:22 Respiratory Rate 16 08/11/17 15:56 Blood Pressure 155/70 H 08/11/17 17:22 Pulse Oximetry 96 08/11/17 15:56 General: cooperative, no acute distress, well developed Nutritional Appearance: well nourished Orientation: alert - Psych Mood: normal Affect: normal Attitude: cooperative - LLE General: other (Valgus deformity and swellling present. Bruising anterior knee extending down tibial spine.) Knee: +1 effusion, valgus deformity, other (marked crepitus of the knee with ROM. Reduced ROM. Laxity of the MCL with testing which is not uncommon with the severity of her valgus deformitiy. No tenderness of the MCL orgin or attachment. Patella is subluxed laterally. No palpable quad or patellar tendon defect. Pt is marginally able to SLR with slight extensor lag. Latent stages of bruising present anterior medially on the knee and extending down the anterior tibial spine. No open abrasions or lesions. No erythema or warmth of the knee to suspect infectious process.) Knee Palpation: Tender to Palpation lateral joint line, Nontender to Palpation medial joint line, Nontender to Palpation anterior, Nontender to Palpation it band, Nontender to Palpation pes anserinus bursa, Nontender to Palpation tibial tubercle, Nontender to Palpation patellar tendon Hip Palpation: Nontender: anterior thigh, greater trochanteric bursa Skin: no rashes or lesions noted, ecchymosis (appears to be several days old. Anterior-medial knee. ), no lacerations or abrasions Extension: 5 degrees Flexion: 60 degrees Ankle Range of Motion: normal ROM Neurological: no deficits, normal to light touch Vascular: dorsalis pedis pulse within normal limits - Labs Result Diagrams: 08/11/17 13:16 08/11/17 13:16 Impression and Recommendation (1) Left knee pain Current visit: Yes Qualifiers: Chronicity: acute Qualified Code(s): M25.562 - Pain in left knee Status: Acute Her knee pain is acute on chronic. Clinically I can't define a specific ligamentous or tendinous injury but she has increased swelling, pain and bruising which could represent an acute process. Her xrays show severe OA with erosion of the lateral femoral condyle into the the lateral tibial plateau and lateral patellar dislocation. There is subluxation of the femur medially on the tibia due to her severe deformity. Some of this is chronic with minimal change from older xrays. MRI was ordered today to help define any fracture or new pathology within the knee. Knee replacement has never been recommended as the pt states she is not a surgical candidate due to her medical problems. She will be kept in the knee immobilizer until MRI results are available. Hospital Course Summary Disclaimer: The visit summary below is not to be considered part of the above Progress Note. Hospital Course: Impression Left knee dislocation Fall Unable to weight-bear Parkinson's Hypertension History of CVA Plan Admit patient to outpatient observation under the care of Dr. Haro Consultation placed with Dr. Celis for further orthopedic recommendations Will obtain MRI of the left knee for further evaluation. Leg immobilizer to left knee for support Monitor patient's blood pressure. Continue all home medications at this time. Note she is on Plavix Case Discussed with IRU director, however unfortunately patient does not qualify currently for inpatient rehabilitation I'm concerned that patient is unsafe to be discharged home. Given that she is unable to weight-bear and has been is not able to care for her. Will plan for further orthopedic evaluation Need to discuss discharge planning tomorrow with case management We did discuss advanced directives and patient is unsure of her wishes. At this time we will place her full code Will discuss further orders and plan of care with attending, Dr. Haro At time of discharge medical care will return to primary care provider, Dr Garcias
[2017-08-11] MEDS ORDERED: GABAPENTIN 600 MG TABLET PO SCH (21:00)
[2017-08-11] MEDS ORDERED: BENAZEPRIL 40 MG TABLET PO SCH (21:00)
[2017-08-11] MEDS ORDERED: SIMVASTATIN 20 MG TABLET PO SCH (21:00)
[2017-08-11] MEDS ORDERED: QUETIAPINE 25 MG TABLET PO SCH (21:00)
[2017-08-12] MEDS: ACETAMINOPHEN 500 MG TABLET PO SCH ×3 (03:45→11:48)
--- NOTE | 2017-08-12 07:40 | XRay Report ---
Indication: fall PROCEDURE: XR ankle LT min 3V: Encounter: Initial Comparison: None Findings: There is no acute fracture, dislocation or malalignment identified. Impression: No acute osseous abnormality. .
--- NOTE | 2017-08-12 08:46 | XRay Report ---
Indication: fall PROCEDURE: XR knee LT 3V: Encounter: Initial Comparison: 09/19/2015 Findings: There is destruction of the lateral femoral condyle and the lateral tibial plateau with severe valgus deformity, and lateral subluxation of the proximal tibia, similar to prior study. There is dislocation of the patella laterally. There is at least moderate knee effusion. Impression: Severe left knee deformity with dislocation of the patella, lateral subluxation of the proximal tibia, moderate effusion, with chronic appearing bony destructive process of the distal lateral femoral condyle and proximal tibial plateau. .
[2017-08-12] MEDS ORDERED: LEVOTHYROXINE 100 MCG TABLET PO SCH (09:00)
[2017-08-12] MEDS ORDERED: DULOXETINE 60 MG CAPSULE PO SCH (09:00)
[2017-08-12] MEDS ORDERED: AMLODIPINE 10 MG TABLET PO SCH (09:00)
[2017-08-12] MEDS ORDERED: CLOPIDOGREL 75 MG TABLET PO SCH (09:00)
[2017-08-12] MEDS ORDERED: GABAPENTIN 300 MG CAPSULE PO SCH ×2 (09:00→18:00)
[2017-08-12] MEDS: BETHANECHOL 25 MG TABLET PO SCH (09:38)
[2017-08-12] MEDS: BUSPIRONE 10 MG TABLET PO SCH (09:38)
[2017-08-12] MEDS: ENTACAPONE 200 MG TABLET PO SCH ×2 (09:39→09:49)
[2017-08-12] MEDS: CarBAMazepine 200 MG TABLET PO SCH (09:40)
[2017-08-12] MEDS ORDERED: ENTACAPONE 200 MG TABLET PO SCH (12:00)
[2017-08-12] MEDS ORDERED: BUSPIRONE 10 MG TABLET PO SCH (12:00)
[2017-08-12] MEDS ORDERED: BETHANECHOL 25 MG TABLET PO SCH (12:00)
--- NOTE | 2017-08-12 12:16 | Progress Note ---
- Date 08/12/17 Subjective: Patient is seen this morning sitting in bed. She reports her pain is controlled. She had a bowel movement yesterday. She is mostly concerned about her Parkinson medications as she "gets shaky" if she doesn't get them. She usually takes long-acting carbidopa levodopa 3 times a day and take short acting 5 times a day. She has not been able to walk since admission due to her patellar dislocation. She did not qualify for rehabilitation. Objective Vital signs: Temperature 97.3 F 08/12/17 07:27 Pulse Rate 60 08/12/17 07:27 Respiratory Rate 18 08/12/17 07:27 Blood Pressure 166/81 H 08/12/17 07:27 Pulse Oximetry 95 08/12/17 07:27 Height/Weight/BMI: Height 1.65 m Weight 101.8 kg Body Mass Index 37.3 - Constitutional Present: no acute distress, well nourished, well developed - Routine HEENT Exam Head: Present: normocephalic, atraumatic - Routine Respiratory Exam Present: CTA bilaterally. Absent: wheezes - Routine Cardiovascular Exam Present: RRR - Routine Abdominal Exam Present: soft, non distended, non tender - Routine Extremities Exam Present: no edema (trace b/l LE), normal capillary refill Comments: L leg in full leg brace - Routine Skin Exam Present: dry, warm - Routine Neurological Exam Present: alert, oriented X3, tremors - Routine Lymphatic Exam Lymphatic: Absent: adenopathy - Routine Psychiatric Exam Present: normal affect, cooperative Results - Labs CBC & Chem 7: 08/11/17 13:16 08/11/17 13:16 Assessment and Plan Assessment and Plan: Impression Left knee dislocation Fall Unable to weight-bear Parkinson's Hypertension History of CVA Plan Dr Celis recommends referral to Dr. Kelley for surgical consult. He is accepting new pts starting in October. She is being placed in a hinged knee brace. She will be dismissed home as she doesn't qualify for SNU or rehab. PT/OT consult has been placed to determine d/c recommendations - likely home PT. - Physician Narrative Physician: Aliya Duarte MD Narrative: Date: 08/12/17 Time: 1529 I have independently evaluated and examined this patient. I reviewed the chart, the patient's history, and the HVAC SPECIALIST/PA's documented findings as above. We discussed and formulated the assessment and plan as above with additions as below: Mrs. Ware was seen with her at bedside and discussed with Dr. Celis. She described chronic tremor due to Parkinson's disease and knee pain with recent falls. Examination revealed moderate soft tissue swelling of the left knee with faint bruising over the patella Fine tremor left upper extremity at rest Right nasolabial fold flattening Hinged knee brace being coordinated by orthopedics; patient prefers discharge home to option of penitentiary. To follow-up with Dr. Terrell at [facility] for consideration of [facility]. PT recommended home with home health-case management assisted with the latter. Hospital Course Summary Disclaimer: The visit summary below is not to be considered part of the above Progress Note. Hospital Course: 08/11 Admit patient to outpatient observation under the care of Dr. Haro Consultation placed with Dr. Celis for further orthopedic recommendations Will obtain MRI of the left knee for further evaluation. Leg immobilizer to left knee for support Monitor patient's blood pressure. Continue all home medications at this time. Note she is on Plavix Case Discussed with IRU director, however unfortunately patient does not qualify currently for inpatient rehabilitation I'm concerned that patient is unsafe to be discharged home. Given that she is unable to weight-bear and has been is not able to care for her. Will plan for further orthopedic evaluation Need to discuss discharge planning tomorrow with case management We did discuss advanced directives and patient is unsure of her wishes. At this time we will place her full code Will discuss further orders and plan of care with attending, Dr. Haro At time of discharge medical care will return to primary care provider, Dr Garcias 08/12 Dr Celis recommends referral to Dr. Kelley for surgical consult. He is accepting new pts starting in October. She is being placed in a hinged knee brace. She will be dismissed home as she doesn't qualify for SNU or rehab. PT/OT consult has been placed to determine d/c recommendations - likely home PT.
--- NOTE | 2017-08-12 12:58 | Orthopedic Progress Note ---
Date: Date: 08/12/17 Time: 1251 Subjective/Severity of Illness: Recheck left knee. MRI shows chronic changes but no acute tendon or ligamentous injury. Pt feels a little better today. She has not been up yet. Exam - Constitutional Vital Signs: Temperature 97.3 F 08/12/17 07:27 Pulse Rate 60 08/12/17 07:27 Respiratory Rate 18 08/12/17 07:27 Blood Pressure 166/81 H 08/12/17 07:27 Pulse Oximetry 95 08/12/17 07:27 General: cooperative, no acute distress, well developed Nutritional Appearance: well nourished Orientation: alert - Psych Mood: normal Affect: normal Attitude: cooperative - LLE General: other (Moderate valgus defmormity. Bruising anterior and medially. ) Knee: +1 effusion, valgus deformity, deformity correctable (Paritally.), other ( Marked crepitus with ROM.) Knee Palpation: Tender to Palpation lateral joint line, Nontender to Palpation medial joint line Skin: no rashes or lesions noted Ankle Range of Motion: normal ROM Neurological: no deficits Vascular: dorsalis pedis pulse within normal limits - Labs Result Diagrams: 08/11/17 13:16 08/11/17 13:16 Orthopedic Assessment and Plan (1) Left knee pain Status: Acute Qualifiers: Chronicity: acute Qualified Code(s): M25.562 - Pain in left knee Assessment and Plan: Will try a hinged knee brace. Work with PT / OT. WBAT with a walker. Pt needs to consider a TKA. Will refer her to Dr Terrell due to the severity of her deformity. Discharge home when safe. May need to consider placement for safety issues. Hospital Course Summary Disclaimer: The visit summary below is not to be considered part of the above Progress Note. Hospital Course: Impression Left knee dislocation Fall Unable to weight-bear Parkinson's Hypertension History of CVA Plan Admit patient to outpatient observation under the care of Dr. Haro Consultation placed with Dr. Celis for further orthopedic recommendations Will obtain MRI of the left knee for further evaluation. Leg immobilizer to left knee for support Monitor patient's blood pressure. Continue all home medications at this time. Note she is on Plavix Case Discussed with IRU director, however unfortunately patient does not qualify currently for inpatient rehabilitation I'm concerned that patient is unsafe to be discharged home. Given that she is unable to weight-bear and has been is not able to care for her. Will plan for further orthopedic evaluation Need to discuss discharge planning tomorrow with case management We did discuss advanced directives and patient is unsure of her wishes. At this time we will place her full code Will discuss further orders and plan of care with attending, Dr. Haro At time of discharge medical care will return to primary care provider, Dr Garcias
[2017-08-12 13:02] VITALS: BP 172/89; PULSE 61; RESP 16; TEMP 96.7; O2SAT 97
[2017-08-12] MEDS ORDERED: CarBAMazepine 200 MG TABLET PO SCH (14:00)
--- NOTE | 2017-08-12 14:24 | Discharge Summary ---
Discharge Information Date of admission: 08/11/17 15:08 Anticipated date of discharge: 08/12/17 Attending Physician: Aliya Duarte MD Primary care physician: Valdemar Garcias MD Consults: Consulting Provider: Misha Celis knee pain secondary to severe deformity of Left knee Fall Unable to weight-bear Osteoarthritis Parkinson's Hypertension History of CVA - Laboratory Labs: Laboratory Tests 08/11/17 08/11/17 13:16 13:16 WBC 8.6 RBC 3.92 L Hgb 12.6 Hct 37.7 Plt Count 248 Sodium 139 Potassium 4.4 Chloride 98 Carbon Dioxide 28 Anion Gap 13 BUN 11.0 Creatinine 0.6 L Glucose 113 H Calcium 9.8 AST 20 ALT < 4 Alkaline Phosphatase 85 - Radiology Radiology: Date of Exam: 08/11/17 Indication: left patellar dislocation PROCEDURE: MR knee LT wo con: Findings: The menisci have been almost completely destroyed, presumably by degenerative changes and a chronic inflammatory process. No visible ACL. There are a few PCL fibers that appear intact. The MCL is partially torn and displaced by the large joint effusion. The lateral collateral ligament complex is displaced by the large joint effusion and partially torn. The extensor mechanism is intact. No acute fracture identified. The patella is laterally dislocated. The medial patellar retinaculum is stretched but not completely torn. There is a large complex joint effusion that may represent a chronic hemarthrosis with or without pigmented villonodular synovitis. The cartilage of the articular surfaces has been completely eroded. There is focal edema in the fibular head that could be due to bone contusion or nondisplaced trabecular fracture. Chronic depression of the lateral tibial plateau with remodeling of the tibial plateau and lateral femoral condyle. There is muscular tearing of the lateral head of the gastrocnemius muscle. Possible ruptured Lance's cyst. Impression: 1. Acute and chronic changes which could be due to rheumatoid arthritis, amyloidosis, gout or PVNS. 2. Lateral patellar dislocation which may be acute or chronic. There is a chronic appearing, joint effusion possibly representing a chronic hemarthrosis. Diagnostic joint aspiration may be helpful. 3. Severe interior derangement as well with destruction of the menisci, cruciate and collateral ligaments. Date of Exam: 08/11/17 Indication: fall PROCEDURE: XR knee LT 3V: Findings: There is destruction of the lateral femoral condyle and the lateral tibial plateau with severe valgus deformity, and lateral subluxation of the proximal tibia, similar to prior study. There is dislocation of the patella laterally. There is at least moderate knee effusion. Impression: Severe left knee deformity with dislocation of the patella, lateral subluxation of the proximal tibia, moderate effusion, with chronic appearing bony destructive process of the distal lateral femoral condyle and proximal tibial plateau. Date of Exam: 08/11/17 Indication: fall PROCEDURE: XR ankle LT min 3V: Findings: There is no acute fracture, dislocation or malalignment identified. Impression: No acute osseous abnormality. History of Present Illness HPI: Patient is a 76 yr old female who resides at home with her . On 08/08 patient fell after losing her balance. Since that time she has had continued pain in the left knee and left ankle. Today the pain got so severe that she was unable to weight-bear safely. She does normally walk with a walker. Due to the severity of her pain. She presented to the emergency room for further evaluation and treatment. Routine labs were obtained that were unremarkable. X-ray of the left knee did reveal patellar dislocation medially. She continues to be unable to weight-bear, thus the hospitalist services were contacted and accepted patient for outpatient observation for further evaluation and treatment. Objective Vital signs: Temperature 96.7 F L 08/12/17 13:01 Pulse Rate 61 08/12/17 13:01 Respiratory Rate 16 08/12/17 13:01 Blood Pressure 172/89 H 08/12/17 13:01 Pulse Oximetry 97 08/12/17 13:01 Height/Weight/BMI: Height 1.65 m Weight 101.8 kg Body Mass Index 37.3 - Constitutional Present: no acute distress, well nourished, well developed - Routine HEENT Exam Head: Present: normocephalic, atraumatic - Routine Respiratory Exam Present: CTA bilaterally. Absent: wheezes - Routine Cardiovascular Exam Present: RRR - Routine Abdominal Exam Present: soft, non distended, non tender - Routine Extremities Exam Present: edema (tr b/l), normal capillary refill Comments: L leg in full leg brace - Routine Skin Exam Present: dry, warm - Routine Neurological Exam Present: alert, oriented X3, tremors - Routine Lymphatic Exam Lymphatic: Absent: adenopathy - Routine Psychiatric Exam Present: normal affect, cooperative Hospital Course This is a general summary of the patient's hospital course. For more details refer to the complete medical record. Hospital course: 08/11 Admit patient to outpatient observation under the care of Dr. Haro Consultation placed with Dr. Celis for further orthopedic recommendations Will obtain MRI of the left knee for further evaluation. Leg immobilizer to left knee for support Monitor patient's blood pressure. Continue all home medications at this time. Note she is on Plavix Case Discussed with IRU director, however unfortunately patient does not qualify currently for inpatient rehabilitation I'm concerned that patient is unsafe to be discharged home. Given that she is unable to weight-bear and has been is not able to care for her. Will plan for further orthopedic evaluation Need to discuss discharge planning tomorrow with case management We did discuss advanced directives and patient is unsure of her wishes. At this time we will place her full code Will discuss further orders and plan of care with attending, Dr. Haro At time of discharge medical care will return to primary care provider, Dr Smallwood 08/12 Dr Celis recommends referral to Dr. Proctor (orthopedic oncology at [facility]) for surgical consult given the extent of her deformity. She is being placed in a hinged knee brace. She will be dismissed home as she doesn't qualify for SNU or rehab. PT/OT consulted and thinks pt can be dismissed with home health/PT. Time spent with patient: discharge greater than 30 minutes Resuscitation Status: Full Code Discharge Plan - Discharge Disposition Discharge Date: 08/12/17 Disposition: 86 Home Health Service *Condition: Improved Reason For Visit (Visit label in EMR): dislocation of patella - Discharge Medications *Discharge Medications: New Hydrocodone/APAP 5/325 [Lignum 5/325] 1 tab PO Q4H PRN #20 tab PRN Reason: Pain Continue Simvastatin 20 mg PO HS #0 Metoprolol Tartrate 50 mg PO BID Gabapentin [Neurontin] 300 mg PO BID Clopidogrel Bisulfate [Clopidogrel] 75 mg PO DAILY Carbidopa/Levodopa [Carbidopa-Levodopa 25-100 Tab] 1 tab PO 5XD carBAMazepine [Carbamazepine] 200 mg PO TID Bethanechol [Urecholine] 25 mg PO TID Benazepril HCl 40 mg PO HS Duloxetine [Cymbalta] 60 mg PO DAILY Amlodipine [Norvasc] 10 mg PO DAILY Entacapone 200 mg PO TID Oxybutynin Chloride [Oxybutynin Chloride ER] 10 mg PO DAILY Buspirone [Buspar] 20 mg PO TID Seroquel (quetiapine) 25 mg tablet 75 mg PO HS tab Ultram (Tramadol) 50 mg tablet 50 mg PO Q8H PRN tab PRN Reason: Opiate Withdrawl carbidopa ER 50 mg-levodopa 200 mg tablet,extended release 1 tab PO TID #90 tab levothyroxine 100 mcg tablet 100 mcg PO DAILY tab - Discharge Packet/Instructions *Diet: Regular diet *Activity: As tolerated. Per home health physical therapist. *Pain Management/Treatment: Tramadol and Lignum as needed *Wound Care: n/a *Notify Physician if: If you develop uncontrolled pain or are unable to get around your house *During Business Hours Contact: Your regular doctor *After Business Hours Contact: [facility] at [phone] *Pending Lab/Results: No Pending Lab - Referrals/Follow Up *Referrals/Follow Up: Hugo Proctor DO [Physician] - (DR PROCTOR'S OFFICE WILL CALL YOU WITH A FOLLOW UP APPOINTMENT. ) Valdemar Garcias MD [Family Provider] - 08/20/17 8:30 am - Patient Handouts Patient Handouts: Patellar Dislocation (DC) - Dismissal Complete Discharge Instructions are:: Complete Physician Narrative - Narrative Physician: Aliya Duarte MD Attestation Narrative: Date: 08/12/17 Time: 1540 I have independently evaluated and examined this patient. I reviewed the chart, the patient's history, and the [employer] STATION ATTENDANT/PA's documented findings as above. We discussed and formulated the assessment and plan as above with additions as below: Mrs. Ware was seen with her at bedside and discussed with Dr. Celis. She described chronic tremor due to Parkinson's disease and knee pain with recent falls. Examination revealed moderate soft tissue swelling of the left knee with faint bruising over the patella Fine tremor left upper extremity at rest Right nasolabial fold flattening Hinged knee brace being coordinated by orthopedics; patient prefers discharge home to option of usp. To follow-up with Dr. Proctor at [facility] for consideration of [facility]. PT recommended home with home health; case management assisted with the latter.
[2017-08-13] MEDS ORDERED: AMLODIPINE 10 MG TABLET PO SCH (05:00)
[2017-08-13] MEDS ORDERED: LEVOTHYROXINE 100 MCG TABLET PO SCH (05:00)
[2017-08-13] MEDS ORDERED: DULOXETINE 60 MG CAPSULE PO SCH (07:00)
[2017-08-13] MEDS ORDERED: CLOPIDOGREL 75 MG TABLET PO SCH (07:00)
== END 2017-08-12 15:25 | disposition home health service (06) ==
LOC: ED 10:56 → SRG 10:56 → SUATTDRO 15:08 → SRG 15:40
PROVIDERS: ADMIT Internal Medicine; ATTEND Internal Medicine